=== PATIENT | male | born 1940 | race Caucasian/White ===

== ENCOUNTER 2016-08-30 19:11 | Inpatient (IN) | payer MEDICARE, OTHER ==
[2016-08-30] MEDS ORDERED: IPRATROPIUM-ALBUTEROL 3 ML NEB INHALATION STA (19:44)
[2016-08-30 19:55] LABS: Anisocytosis Slight; Basophils # (A) 0.1 k/uL (0-0.2); Basophils % (A) 1 %; CH 31.6; Eosinophils # (A) 0.1 k/uL (0-0.7); Eosinophils % (A) 1 %; HCT 42.9 % (39.0-53.0); HDW 2.85; Luc # (Auto) 0.26; Luc % (Auto) 3; Lymphocytes # (A) 1.6 k/uL (1.0-4.8); Lymphocytes % (A) 19 %; MCH 31.6 pg (25.0-35.0); MCHC 32.7 g/dL (31.0-37.0); MCV 96.6 fL (80.0-100.0); Macrocytosis Slight; Mean Platelet Volume 8.1; Monocytes # (A) 0.6 k/uL (0-1.0); Monocytes % (A) 7 %; Neutrophils % (A) 70 %; RBC 4.44 m/uL (4.30-5.90); RDW 16.6 % (11.5-15.5); WBC 8.6 k/uL (3.8-10.6); WBC (Perox) 8.25
[2016-08-30 20:05] LABS: ALT 23 U/L (21-72); AST 23 U/L (17-59); Alkaline Phosphatase 105 U/L (38-126); Anion Gap 11 mmol/L; Blood Urea Nitrogen 19 mg/dL (9-20); Calcium 9.3 mg/dL (8.4-10.2); Carbon Dioxide 23 mmol/L (22-30); Chloride 101 mmol/L (98-107); Glucose 108 mg/dL (74-99); INR 1.2 (<1.1); Non-African American GFR(MDRD) >60 (>60 ml/min/1.73 sqM); Partial Thromboplastin Time 27.3 sec (22.0-30.0); Potassium 3.8 mmol/L (3.5-5.1); Prothrombin Time 11.6 sec (9.0-12.0); Sodium 135 mmol/L (137-145); Total Bilirubin 1.4 mg/dL (0.2-1.3); Total Protein 6.7 g/dL (6.3-8.2)
--- NOTE | 2016-08-30 20:07 | ED ---
General Adult HPI - General Chief complaint: Chest Pain Stated complaint: Chest Pain Time Seen by Provider: 08/30/16 19:38 Source: patient Mode of arrival: wheelchair Limitations: no limitations - History of Present Illness Initial comments: 75-year-old male history of coronary disease with 2 bypasses COPD peripheral vascular disease with previous AK amputation and bifemoral bypass. Presents with a cough for last 6 weeks concerned he has pneumonia some discomfort in his chest when he coughs is not bending his blood pressure medicines found it hard to get the doctor has no dizziness no blurry vision no double vision no nausea no vomiting no diarrhea - Related Data Home Medications Medication Instructions Recorded Confirmed Apixaban [Eliquis] 2.5 mg PO BID 08/30/16 08/30/16 Furosemide [Lasix] 20 mg PO DAILY 08/30/16 08/30/16 Previous Rx's Medication Instructions Recorded Aspirin 81 mg PO DAILY chew 10/18/14 hydrALAZINE HCL [Apresoline] 50 mg PO TID #90 tab 10/18/14 Thiamine [Vitamin B-1] 100 mg PO BID@1200,1700 tab 05/28/15 Allergies Allergy/AdvReac Type Severity Reaction Status Date / Time No Known Allergies Allergy Verified 08/30/16 19:37 Review of Systems ROS Statement: Those systems with pertinent positive or pertinent negative responses have been documented in the HPI. ROS Other: All systems not noted in ROS Statement are negative. Constitutional: Denies: fever, chills Eyes: Denies: eye pain ENT: Denies: throat pain Respiratory: Reports: cough, dyspnea Cardiovascular: Reports: chest pain Gastrointestinal: Denies: abdominal pain, nausea, vomiting, diarrhea Neurological: Denies: headache Hematological/Lymphatic: Denies: easy bleeding, easy bruising Past Medical History Past Medical History: Atrial Fibrillation, Asthma, Coronary Artery Disease (CAD) , Heart Failure, COPD, Deep Vein Thrombosis (DVT), GERD/Reflux, Hyperlipidemia, Hypertension, Myocardial Infarction ([place]), Pneumonia, Pulmonary Embolus ([place]), Vascular Disorder Additional Past Medical History / Comment(s): Other HX: ischemic cardiomegalywith L atrial enlargement, CHF systolic dysfunction, LLL pneumonia 04/26/13, NSTEMI, Vtach, Afib, PVD, PAD, hiatal hernia, acute and chronic anemia ,chronicbackpain,bilateral feet and leg edema, Rleg fx in past, internal hemorrhoids and diverticulosis with polyps with removal. Pacemaker put in on at [facility] Last Myocardial Infarction Date:: unkn History of Any Multi-Drug Resistant Organisms: MRSA Date of last positivie culture/infection: 02/03/2015 MDRO Source:: Left Foot Past Surgical History: Coronary Bypass/CABG, Heart Catheterization, Hernia Repair Additional Past Surgical History / Comment(s): CABG 1974, CABG 1999, AICD 2004, R femoropopliteal graft complicated by post op infection 2007, colonoscopy with polypectomy transverse colon, umbilical hernia repair. PICC LINE 02/07/15, NOW OUT Past Anesthesia/Blood Transfusion Reactions: No Reported Reaction Additional Past Anesthesia/Blood Transfusion Reaction / Comment(s): Pt has recieved blood without reaction. Past Psychological History: Depression Additional Psychological History / Comment(s): Pt currently lives alone. He uses either a standard cane or quadcane to ambulate. He has no home care agency coming into the home. He states he is independent with his ADL's normally.Hestateshehas transportation issues and that is why he cannot get to appointments. He is not on home O2. Pt did share that he was admitted to psych unit about 3 yrs ago and tx fordepression.Hedeniesdepression to be a big problem at this time and denies thoughts of suicide or idealation or plan. Smoking Status: Current every day smoker Past Alcohol Use History: Occasional Additional Past Alcohol Use History / Comment(s): Pt states he started smoking at age 11 yrs. He recently reduced his smoking to 5 cigs a day but had smoked 1 -2 packs a day before that. He states he used to drink 4-5 beers daily butrecentlyreducedthat to 1 beer a day. Past Drug Use History: None Reported - Past Family History Father Family Medical History: Myocardial Infarction ([place]) Additional Family Medical History / Comment(s): Father at age 78 of [place]. Mother Family Medical History: Cancer Additional Family Medical History / Comment(s): Mother at age 51 of some form of cancer. General Exam Limitations: no limitations General appearance: alert, in no apparent distress Head exam: Present: atraumatic Eye exam: Present: PERRL, EOMI ENT exam: Present: normal oropharynx, mucous membranes moist Neck exam: Present: normal inspection Respiratory exam: Present: wheezes, rhonchi Cardiovascular Exam: Present: regular rate, normal heart sounds GI/Abdominal exam: Present: soft. Absent: distended, tenderness, guarding Extremities exam: Present: other (AK amputation on the left) Neurological exam: Present: alert, CN II-XII intact Psychiatric exam: Present: normal affect, normal mood Skin exam: Present: warm, dry Course Vital Signs 08/30/16 08/30/16 08/30/16 19:23 20:25 21:20 Temperature 96.9 F L Pulse Rate 89 65 60 Respiratory 18 18 20 Rate Blood Pressure 173/106 160/94 159/93 O2 Sat by Pulse 89 L 97 99 Oximetry Medical Decision Making - Lab Data Result diagrams: 08/30/16 19:30 08/30/16 19:30 Lab Results 08/30/16 08/30/16 08/30/16 Range/Units 19:30 19:30 19:30 WBC 8.6 (3.8-10.6) k/uL RBC 4.44 (4.30-5.90) m/uL Hgb 14.0 (13.0-17.5) gm/dL Hct 42.9 (39.0-53.0) % MCV 96.6 (80.0-100.0) fL MCH 31.6 (25.0-35.0) pg MCHC 32.7 (31.0-37.0) g/dL RDW 16.6 H (11.5-15.5) % Plt Count 255 (150-450) k/uL Neutrophils % 70 % Lymphocytes % 19 % Monocytes % 7 % Eosinophils % 1 % Basophils % 1 % Neutrophils # 6.0 (1.3-7.7) k/uL Lymphocytes # 1.6 (1.0-4.8) k/uL Monocytes # 0.6 (0-1.0) k/uL Eosinophils # 0.1 (0-0.7) k/uL Basophils # 0.1 (0-0.2) k/uL Anisocytosis Slight Macrocytosis Slight PT (9.0-12.0) sec INR (<1.1) APTT (22.0-30.0) sec Sodium 135 L (137-145) mmol/L Potassium 3.8 (3.5-5.1) mmol/L Chloride 101 (98-107) mmol/L Carbon Dioxide 23 (22-30) mmol/L Anion Gap 11 mmol/L BUN 19 (9-20) mg/dL Creatinine 0.77 (0.66-1.25) mg/dL Est GFR (MDRD) Af Amer >60 (>60 ml/min/1.73 sqM) Est GFR (MDRD) Non-Af >60 (>60 ml/min/1.73 sqM) Glucose 108 H (74-99) mg/dL Calcium 9.3 (8.4-10.2) mg/dL Total Bilirubin 1.4 H (0.2-1.3) mg/dL AST 23 (17-59) U/L ALT 23 (21-72) U/L Alkaline Phosphatase 105 (38-126) U/L Total Creatine Kinase 50 L (55-170) U/L CK-MB (CK-2) 2.0 (0.0-2.4) ng/mL CK-MB (CK-2) Rel Index 4.0 Troponin I 0.042 H* (0.000-0.034) ng/mL NT-Pro-B Natriuret Pep pg/mL Total Protein 6.7 (6.3-8.2) g/dL Albumin 3.6 (3.5-5.0) g/dL 08/30/16 08/30/16 Range/Units 19:30 19:30 WBC (3.8-10.6) k/uL RBC (4.30-5.90) m/uL Hgb (13.0-17.5) gm/dL Hct (39.0-53.0) % MCV (80.0-100.0) fL MCH (25.0-35.0) pg MCHC (31.0-37.0) g/dL RDW (11.5-15.5) % Plt Count (150-450) k/uL Neutrophils % % Lymphocytes % % Monocytes % % Eosinophils % % Basophils % % Neutrophils # (1.3-7.7) k/uL Lymphocytes # (1.0-4.8) k/uL Monocytes # (0-1.0) k/uL Eosinophils # (0-0.7) k/uL Basophils # (0-0.2) k/uL Anisocytosis Macrocytosis PT 11.6 (9.0-12.0) sec INR 1.2 (<1.1) APTT 27.3 (22.0-30.0) sec Sodium (137-145) mmol/L Potassium (3.5-5.1) mmol/L Chloride (98-107) mmol/L Carbon Dioxide (22-30) mmol/L Anion Gap mmol/L BUN (9-20) mg/dL Creatinine (0.66-1.25) mg/dL Est GFR (MDRD) Af Amer (>60 ml/min/1.73 sqM) Est GFR (MDRD) Non-Af (>60 ml/min/1.73 sqM) Glucose (74-99) mg/dL Calcium (8.4-10.2) mg/dL Total Bilirubin (0.2-1.3) mg/dL AST (17-59) U/L ALT (21-72) U/L Alkaline Phosphatase (38-126) U/L Total Creatine Kinase (55-170) U/L CK-MB (CK-2) (0.0-2.4) ng/mL CK-MB (CK-2) Rel Index Troponin I (0.000-0.034) ng/mL NT-Pro-B Natriuret Pep 02418 pg/mL Total Protein (6.3-8.2) g/dL Albumin (3.5-5.0) g/dL - EKG Data -: EKG Interpreted by Me 08/30/16 20:26 EKG 08/30/2016 1924 ventricular rate 64 bpm AK interval 292 ms, QRS duration 204 ms QT interval 520 ms atrial sensed ventricular paced rhythm with prolonged AV conduction - Radiology Data Radiology results: report reviewed Cardiomegaly congestive heart failure Disposition Clinical Impression: CHF (congestive heart failure), Peripheral vascular disease of lower extremity , COPD (chronic obstructive pulmonary disease) Disposition: ADMITTED IP TO THIS [facility] Condition: Fair Time of Disposition: 22:06
--- NOTE | 2016-08-30 20:31 | XR ---
EXAMINATION TYPE: XR chest 2V DATE OF EXAM: 08/30/2016 8:25 PM COMPARISON: 05/22/2015 HISTORY: 75-year-old male difficulty breathing TECHNIQUE: Frontal and lateral views FINDINGS: Heart is mildly enlarged, increased from prior. Left anterior chest wall AICD generator with right ve ntricular lead. Median sternotomy wires are present with post-CABG changes. New interstitial lung disease with small bilateral pleural effusions with adjacent opacity. More foca l left midlung opacity should be reassessed after treatment. IMPRESSION: 1. Findings suggest COPD with superimposed CHF and interstitial pulmonary edema. 2. Small pleural effusions with adjacent atelectasis and/or consolidation. 3. A more focal left midlung opacity should be reassessed after treatment.
[2016-08-30 20:51] LABS: Troponin I 0.042 ng/mL (0.000-0.034)
[2016-08-30] MEDS ORDERED: FUROSEMIDE 10 MG/ML 4 ML VIAL IV STA (21:04)
[2016-08-30] MEDS ORDERED: ALPRAZolam 0.25 MG TAB PO PRN (22:07)
[2016-08-30] MEDS ORDERED: NALOXONE 0.4 MG/ML 1 ML VIAL IV PRN (22:07)
[2016-08-30] MEDS: SODIUM CHLORIDE 0.9% 1,000 ML IV SCH (23:28)
[2016-08-31] MEDS: NITROGLYCERIN OINT 1 INCH/GM PACKET TOPICAL SCH ×2 (00:18→08:03)
[2016-08-31 02:07] LABS: Creatine Kinase MB 1.4 ng/mL (0.0-2.4)
[2016-08-31 02:27] LABS: Troponin I 0.043 ng/mL (0.000-0.034)
[2016-08-31 06:56] LABS: Anion Gap 12 mmol/L; Blood Urea Nitrogen 16 mg/dL (9-20); Calcium 8.9 mg/dL (8.4-10.2); Carbon Dioxide 25 mmol/L (22-30); Chloride 102 mmol/L (98-107); Glucose 93 mg/dL (74-99); Non-African American GFR(MDRD) >60 (>60 ml/min/1.73 sqM); Potassium 3.4 mmol/L (3.5-5.1); Sodium 139 mmol/L (137-145)
[2016-08-31 07:08] LABS: Creatine Kinase MB 1.4 ng/mL (0.0-2.4)
[2016-08-31 07:16] LABS: Troponin I 0.044 ng/mL (0.000-0.034)
[2016-08-31 07:28] LABS: Anisocytosis Slight; Basophils # (A) 0.1 k/uL (0-0.2); Basophils % (A) 1 %; CH 31.8; CHCM 32.6; Eosinophils # (A) 0.1 k/uL (0-0.7); Eosinophils % (A) 1 %; HCT 44.9 % (39.0-53.0); HDW 2.81; HGB 14.3 gm/dL (13.0-17.5); Luc # (Auto) 0.19; Luc % (Auto) 3; Lymphocytes # (A) 1.4 k/uL (1.0-4.8); Lymphocytes % (A) 18 %; MCH 31.3 pg (25.0-35.0); MCHC 31.8 g/dL (31.0-37.0); MCV 98.3 fL (80.0-100.0); Macrocytosis Slight; Monocytes # (A) 0.6 k/uL (0-1.0); Monocytes % (A) 8 %; Neutrophils # (A) 5.4 k/uL (1.3-7.7); Neutrophils % (A) 70 %; RBC 4.57 m/uL (4.30-5.90); RDW 16.6 % (11.5-15.5); WBC 7.7 k/uL (3.8-10.6); WBC (Perox) 7.01
[2016-08-31] MEDS: ASPIRIN 81 MG CHEW PO SCH (08:03)
[2016-08-31] MEDS: APIXABAN 2.5 MG TABLET PO SCH ×2 (08:03→21:29)
[2016-08-31] MEDS: FUROSEMIDE 10 MG/ML 4 ML VIAL IV SCH ×3 (08:04→21:30)
[2016-08-31] MEDS: FAMOTIDINE 20 MG TAB PO SCH ×2 (08:04→21:34)
[2016-08-31] MEDS: hydrALAZINE HCL 50 MG TAB PO SCH ×3 (08:04→21:29)
--- NOTE | 2016-08-31 10:08 | CONS ---
DATE OF CONSULTATION: Attending: Dr. Caldwell Mr. Lewis is a 75-year-old male with known history of coronary artery disease, status post coronary artery bypass grafting, history of ischemic cardiomyopathy, ICD implant, atrial fibrillation, severe peripheral vascular disease, status post left AKA and noncompliant, has not been followed by cardiology for over 2 years and according to him he has not seen Dr. Caldwell in a while, who presented with symptoms of progressive dyspnea, cough and chest pain, worse with deep breathing. Patient has a history of chronic tobacco use and unfortunately history of chronic alcohol intake as well although according to him that is better. He is quite limited in his physical activity. He is in a wheelchair. He denies any peripheral edema but he sleeps in a recliner. The discomfort in the chest appears to be respirophasic but he has significant dyspnea on exertion, although he is limited in his activity. He has a cough. He thinks he had a fever, but he is not quite sure. He has no palpitation or syncope. His coronary risk factors are remarkable for a history of hypertension. He is a smoker, nondiabetic. His medications at home include: Eliquis 2.5 mg twice a day, aspirin once a day, Lasix 20 mg daily, thiamine and hydralazine 50 mg 3 times a day. REVIEW OF SYSTEMS: RESPIRATORY SYSTEM: History of chronic tobacco use, dyspnea on exertion as well as the cough. GI: No recent GI bleeding. No peptic ulcer disease. SYSTEM: No dysuria or hematuria. NERVOUS SYSTEM: No history of seizure. Past surgical history is remarkable for coronary artery bypass grafting and the left above-knee amputation. PHYSICAL EXAMINATION: A 75-year-old male, alert, oriented, in no apparent distress. Blood pressure 160/90 with a heart rate in the 60s. HEAD: Normocephalic. EYES: Sclerae anicteric. NECK: Good upstroke. No jugular venous distention. LUNGS: With decreased air exchange bilaterally. No wheezes. HEART: S1, S2 with systolic murmur heard at the base. No diastolic murmur. No rub. ABDOMEN: Soft, nontender, positive bowel sounds. No organomegaly. EXTREMITIES: Status post left above-knee amputation. No edema on the right side. Decreased distal pulses. Lab data revealed troponin 0.42, 0.043, 0.044. NT-proBNP 15,500, BUN and creatinine 16 and 0.74. Potassium 3.4. Hemoglobin 14.3, platelets count 238. EKG revealed to underlying atrial fibrillation with 100% ventricle pacing. Chest x-ray revealed chronic obstructive pulmonary disease with pleural effusion and left midlung opacity with congestion. IMPRESSION: 1. Symptoms of progressive dyspnea in a patient with known history of severe ischemic cardiomyopathy and an element of congestive heart failure. Possible exacerbation of chronic obstructive pulmonary disease with upper respiratory infection. 2. History of coronary artery bypass grafting. 3. ICD implant. 4. Severe peripheral vascular disease. 5. Chronic tobacco use. 6. Prior history of chronic alcohol intake. 7. Noncompliance. RECOMMENDATION: I will add to his regimen a beta brooke. I will also add nitrate and Aldactone. We will add nitrate and obtain echocardiogram with Doppler. Depending on his progress, further recommendation will be made. Unfortunately prognosis is guarded. Patient has been noncompliant with treatment in the past. He is not a candidate for any aggressive cardiac work-up. Thank you for this consult. We will follow with you.
[2016-08-31] MEDS: ISOSORBIDE MONONITRATE ER 30 MG TAB.ER.24H PO SCH (10:41)
[2016-08-31] MEDS: CARVEDILOL 3.125 MG TAB PO SCH ×2 (10:41→17:30)
[2016-08-31] MEDS: SPIRONOLACTONE 25 MG TAB PO SCH (10:41)
[2016-08-31] MEDS: ATORVASTATIN 40 MG TAB PO SCH (10:41)
[2016-08-31] MEDS: THIAMINE 100 MG TAB PO SCH ×2 (10:42→17:30)
[2016-08-31 12:13] LABS: Creatine Kinase MB 1.3 ng/mL (0.0-2.4); Troponin I 0.039 ng/mL (0.000-0.034)
[2016-08-31] MEDS: LEVOFLOXACIN 500MG-D5W PMX 500 MG in DEXTROSE/WATER 1 100ML.BAG IVPB SCH (12:17)
[2016-08-31] MEDS: guaiFENesin 600 MG TABLET.ER PO SCH ×2 (12:18→21:29)
[2016-08-31] MEDS: methylPREDNISolone SOD SUCCI 125 MG/2 ML VIAL IV SCH ×3 (12:18→23:18)
--- NOTE | 2016-08-31 12:26 | CT ---
EXAMINATION TYPE: HRCT chest DATE OF EXAM: 08/31/2016 11:53 AM COMPARISON: 10/13/2014 HISTORY: 75-year-old male CHF, chest pain TECHNIQUE: Contiguous axial scanning of the chest without IV contrast. HRCT technique was utilized wi th 1 mm slice thickness and 1 cm gap. Only supine imaging was performed. CT DLP: 331.2 mGycm Automated exposure control for dose reduction was used. FINDINGS: Left anterior chest wall AICD generator with a right ventricular lead. Median sternotomy wires are pr esent with post-CABG changes in the mediastinum. Heart is borderline enlarged though it prominent left atrial dilatation. No pericardial effusion. There is mild ectasia of the ascending aorta 3.7 cm with conventional arch vessel branching anatomy. Mild aneurysm of the upper descending thoracic aorta 3.2 cm and ectasia of the lower descending thora cic aorta at 2.9 cm. Moderately atherosclerotic calcifications are present. There is also enlargement of the main right and left pulmonary arteries. 3.2 and 2.8 cm, respectively , suggesting underlying pulmonary arterial hypertension. Limited assessment on HRCT suggest mediastinal lymphadenopathy measuring up to 1.5 cm in the pretrach eal region and 1.2 cm and the left tracheobronchial angle, there may be an additional 1.9 cm subcarin al lymph node. These may have been present on the prior exam. There is diffuse bronchial wall thickening with moderate centrilobular emphysema. Small right pleural effusion with adjacent atelectasis. There is some patchy opacity at both the medi al and lateral right base that could represent atelectasis or infiltrate. Dependent atelectasis at th e left lung base. Possible 9 mm left basilar pulmonary nodule. There is also a 2.2 cm subpleural pulmonary nodule along the left major fissure at the midlung level corresponding to the questioned radiographic finding. Visualized upper abdomen shows renal calcifications measuring up to 4 mm that could be vascular, or r eflect nonobstructive renal calculi. Bones: Degenerative changes at the left shoulder. No osseous destructive process is seen by HRCT tech nique. IMPRESSION: 1. CARDIOMEGALY WITH PROMINENT LEFT ATRIAL DILATATION AND PULMONARY ARTERIAL HYPERTENSION. 2. COPD WITH MODERATE EMPHYSEMA. 3. SMALL RIGHT PLEURAL EFFUSION. CORRELATE FOR MILD CHF. NO FRANCISCO PULMONARY EDEMA. 4. PATCHY ATELECTASIS OR INFILTRATE AT THE RIGHT BASE AND ADDITIONAL ATELECTASIS AT THE LEFT BASE. 5. 2.2 CM SUBPLEURAL PULMONARY NODULE AT THE LEFT MID LUNG CORRESPONDS TO THE RADIOGRAPHIC FINDING AN D IS NEW FROM 10/13/2014. AFTER MANAGEMENT OF PATIENT'S ACUTE PRESENTATION, EITHER 3, 9, 24 MONTH FOLL OW-UP EXAMS OR PET/CT CAN BE PERFORMED. 6. POSSIBLE 9 MM LEFT BASILAR PULMONARY NODULE. ASSESSMENT FOR NODULES IS LIMITED ON HRCT. NOTE THAT HRCT IS GENERALLY RESERVED FOR ASSESSING PATTERNS OF INTERSTITIAL LUNG DISEASE. 7. MEDIASTINAL LYMPHADENOPATHY MEASURING UP TO 1.9 CM SEEMS TO HAVE BEEN PRESENT ON 2014. THIS SUGGES TS A BENIGN ETIOLOGY BUT CAN BE REASSESSED ON THE PATIENT'S FOLLOW-UP OR PET/CT.
--- NOTE | 2016-08-31 14:25 | P.HPIM ---
History of Present Illness H&P Date: 08/31/16 Chief Complaint: Shortness of breath wheezing cough Is a 75-year-old gentleman patient of Dr. Caldwell and Dr. Benjamin, he has underlying history of CHF, CAD, COPD, CK D, PAD, chronic atrial fibrillation, asthma, noncompliance, previous PE and DVT, current smoker history of pacemaker , [id number] amputation left side, admitted to the hospital secondary to shortness of breath for approximately 6 weeks presenting with with orthopnea wheezing shortness of breath difficulty of breathing and left-sided pleurisy. Patient ran out of this medication for the past 2-3 months has had difficulty in obtaining a visit with Dr. Caldwell as he needs 3 by his rides to get to the clinic, he navigates through his manual wheelchair. He currently smokes 1-1/2 pack per day has a nebulizer machine no O2 requirements and was seen in the emergency room secondary to CHF exacerbation as well as COPD exacerbation. He refused to see a pulmonary physician. In the emergency room, EKG showed ventricular rate of 64, atrial sensed ventricular paced rhythm with prolonged AV conduction chest x-ray shows cardiomegaly congestive heart failure is emptying with superimposed CHF and interstitial pulmonary edema and small pleural effusion with atelectasis and or consultation focal left mid lung opacification Past Medical History Past Medical History: Atrial Fibrillation, Asthma, Coronary Artery Disease (CAD) , Heart Failure, COPD, Deep Vein Thrombosis (DVT), GERD/Reflux, Hyperlipidemia, Hypertension, Myocardial Infarction ([place]), Pneumonia, Vascular Disorder Additional Past Medical History / Comment(s): Other HX: ischemic cardiomegaly with L atrial enlargement, CHF systolic dysfunction, NSTEMI, PVD, PAD, hiatal hernia, Rleg fx in past, internal hemorrhoids and diverticulosis with polyps with removal. Pacemaker put in on 04/05/2015 at [place] Last Myocardial Infarction Date:: unkn History of Any Multi-Drug Resistant Organisms: MRSA Date of last positivie culture/infection: 02/03/2015 MDRO Source:: Left Foot Past Surgical History: Coronary Bypass/CABG, Heart Catheterization, Hernia Repair Additional Past Surgical History / Comment(s): CABG 1974, CABG 1999, AICD 2004, R femoropopliteal graft complicated by post op infection 2007, colonoscopy with polypectomy transverse colon, umbilical hernia repair. PICC LINE 02/07/15, NOW OUT , left AKA Past Anesthesia/Blood Transfusion Reactions: No Reported Reaction Additional Past Anesthesia/Blood Transfusion Reaction / Comment(s): Pt has recieved blood without reaction. Past Psychological History: Depression Additional Psychological History / Comment(s): Pt currently lives alone. He states he is independent with his ADL's normally.He states he has transportation issues and that is why he cannot get to appointments. Smoking Status: Current every day smoker Past Alcohol Use History: Occasional Additional Past Alcohol Use History / Comment(s): Pt states he started smoking at age 11 yrs. He recently reduced his smoking to 10 cigs a day but had smoked 1-2 packs a day before that. Past Drug Use History: None Reported - Past Family History Father Family Medical History: Myocardial Infarction ([place]) Additional Family Medical History / Comment(s): Father at age 48 of [place]. Mother Family Medical History: Cancer Additional Family Medical History / Comment(s): Mother at age 51 of some form of cancer. Medications and Allergies Home Medications Medication Instructions Recorded Confirmed Type Apixaban [Eliquis] 2.5 mg PO BID 08/30/16 08/30/16 History Furosemide [Lasix] 20 mg PO DAILY 08/30/16 08/30/16 History Allergies Allergy/AdvReac Type Severity Reaction Status Date / Time No Known Allergies Allergy Verified 08/30/16 19:37 Physical Exam Vitals: Vital Signs Temp Pulse Resp BP Pulse Ox 08/31/16 08:00 98.0 F 61 18 154/80 98 08/31/16 04:00 96.9 F L 62 18 145/91 97 08/30/16 23:33 97.1 F L 65 18 145/90 94 L 08/30/16 22:50 97.1 F L 65 18 145/90 94 L Intake and Output 08/30/16 08/31/16 08/31/16 22:59 06:59 14:59 Intake Total 140 Output Total 630 1675 Balance -335 1679 Intake: Intake, IV Titration 140 Amount Sodium Chloride 0.9% 1, 140 000 ml @ 20 mls/hr IV . Q24H MAI Rx#:[id number] Output: Urine 473 1675 Other: # Voids 3 Weight 57.5 kg 57.5 kg Patient Weight 09/01/16 06:59 Weight 57.5 kg - Constitutional General appearance: cooperative, no acute distress - EENT Eyes: anicteric sclerae, EOMI, PERRLA, dentition normal ENT: hard of hearing, NA/AT, normal oropharynx - Neck Neck: no lymphadenopathy, normal ROM, no other, no rigidity, no stridor, no thyromegaly - Respiratory Respiratory: bilateral: CTA, negative: diminished, dullness, rales, rhonchi, wheezing, prolonged expiration - Cardiovascular Rhythm: regular Heart sounds: normal: S1, S2 Abnormal Heart Sounds: systolic murmur, no diastolic murmur, no rub, no S3 Gallop, no S4 Gallop, no click, no other - Gastrointestinal General gastrointestinal: decreased bowel sounds, normal bowel sounds, soft - Integumentary Integumentary: normal, normal turgor - Neurologic Neurologic: CNII-XII intact - Musculoskeletal Musculoskeletal: gait normal, strength equal bilaterally - Psychiatric Psychiatric: A&O x's 3, appropriate affect, intact judgment & insight Results CBC & Chem 7: 09/01/16 06:10 09/01/16 06:12 Labs: Abnormal Lab Results - Last 24 Hours (Table) 08/31/16 08/31/16 08/31/16 Range/Units 01:16 06:30 06:30 RDW 16.6 H (11.5-15.5) % D-Dimer (<0.60) mg/L FEU Potassium 3.4 L (3.5-5.1) mmol/L Total Creatine Kinase 39 L (55-170) U/L Troponin I 0.043 H* (0.000-0.034) ng/mL 08/31/16 08/31/16 08/31/16 Range/Units 06:30 11:23 11:23 RDW (11.5-15.5) % D-Dimer 0.67 H (<0.60) mg/L FEU Potassium (3.5-5.1) mmol/L Total Creatine Kinase 35 L 32 L (55-170) U/L Troponin I 0.044 H* 0.039 H* (0.000-0.034) ng/mL Thrombosis Risk Factor Assmnt - Choose All That Apply Each Factor Represents 1 point: Abnormal pulmonary function (COPD) Each Risk Factor Represents 3 Points: Age 75 years or older Thrombosis Risk Factor Assessment Total Risk Factor Score: 4 Thrombosis Risk Factor Assessment Level: Moderate Risk Assessment and Plan Plan: 1. Acute CHF exacerbation suspected mixed in etiology on top of chronic mixed CHF noncompliance for several weeks on his treatment, patient's receiving IV Lasix 40 mg every 8 hours. Consults were made with cardiology, echocardiogram was requested, computed tomography scan high resolution was requested to evaluate the left lung nodule that was noted. Spironolactone was started 2. COPD exacerbation with underlying pneumonitis/infiltrate noted on chest x- ray, patient was started on Solu-Medrol IV 60 mg every 6 hours along with nebulized albuterol Atrovent, IV Levaquin 2. History of CAD status post CABG 2 with ischemic cardiomyopathy we will continue the patient on hydralazine 50 mg orally 3 times every day, aspirin 81 mg orally once every day. Imdur daily was started continue on beta blockers he is on Coreg 2.25 mg twice a day 3. Hypertension and hypertensive cardiovascular disease we will continue the patient on hydralazine 50 mg orally 3 times every day. 4. Severe PAD status post bilateral fem-pop bypasses and currently is having a big issues on his left lower extremity with gangrenous changes with impending amputation, was seen and evaluated by Dr. Cortes at [facility] and he would be admitted to our hospital after discussing with Dr. Tracey for possible left above-knee inpatient tomorrow morning. 5. Bilateral pulmonary emboli continue the patient is off Xarelto. 6. Chronic tobacco use and dependence with chronic obstructive pulmonary disease continue the patient on DuoNeb nebulization 3 times a day as well as Pulmicort 0.5 mg nebulization twice every day. 7. Benign prostatic hypertrophy continue Flomax 0.4 mg orally once every day. 8. Phantom leg pain left side patient can have tramadol on a when necessary basis 9. DVT prophylaxis currently on Lovenox 40 mg subcutaneous every 24 hours. 10. GI prophylaxis start the patient on omeprazole 20 mg orally once every day. 11. Long-term anticoagulation with eliquis 12. No code.
[2016-08-31] MEDS ORDERED: POTASSIUM CHLORIDE ER 20 MEQ TAB.ER PO STA (14:26)
[2016-08-31 16:53] LABS: Glucose,Whole Blood 109 mg/dL (75-99)
[2016-08-31 21:10] LABS: Glucose,Whole Blood 110 mg/dL (75-99)
[2016-08-31] MEDS: INSULIN LISPRO (humaLOG) 300 UNIT/3 ML VIAL SQ SCH (21:27)
[2016-08-31] MEDS: POTASSIUM CHLORIDE ER 20 MEQ TAB.ER PO SCH (21:29)
[2016-08-31] MEDS: SODIUM CHLORIDE 0.9% 1,000 ML IV SCH (21:34)
[2016-09-01 06:46] LABS: Anisocytosis Slight; Basophils % (A) 0 %; CH 31.8; CHCM 32.9; Eosinophils % (A) 0 %; HCT 47.1 % (39.0-53.0); HDW 2.75; Luc # (Auto) 0.05; Luc % (Auto) 1; Lymphocytes # (A) 0.4 k/uL (1.0-4.8); Lymphocytes % (A) 6 %; MCHC 31.9 g/dL (31.0-37.0); Macrocytosis Slight; Monocytes # (A) 0.2 k/uL (0-1.0); Monocytes % (A) 3 %; Neutrophils % (A) 90 %; RBC 4.85 m/uL (4.30-5.90); RDW 16.5 % (11.5-15.5); WBC 6.7 k/uL (3.8-10.6)
[2016-09-01 06:52] LABS: Glucose,Whole Blood 210 mg/dL (75-99)
[2016-09-01] MEDS: methylPREDNISolone SOD SUCCI 125 MG/2 ML VIAL IV SCH ×2 (06:55→11:51)
[2016-09-01] MEDS: CARVEDILOL 3.125 MG TAB PO SCH ×2 (06:56→16:42)
[2016-09-01 06:59] LABS: Anion Gap 11 mmol/L; Blood Urea Nitrogen 26 mg/dL (9-20); Calcium 9.5 mg/dL (8.4-10.2); Carbon Dioxide 23 mmol/L (22-30); Chloride 101 mmol/L (98-107); Glucose 193 mg/dL (74-99); Non-African American GFR(MDRD) >60 (>60 ml/min/1.73 sqM); Potassium 4.1 mmol/L (3.5-5.1); Sodium 135 mmol/L (137-145)
[2016-09-01] MEDS: INSULIN LISPRO (humaLOG) 300 UNIT/3 ML VIAL SQ SCH ×4 (06:59→22:01)
[2016-09-01] MEDS: SPIRONOLACTONE 25 MG TAB PO SCH (09:03)
[2016-09-01] MEDS: FAMOTIDINE 20 MG TAB PO SCH ×2 (09:03→20:41)
[2016-09-01] MEDS: ATORVASTATIN 40 MG TAB PO SCH (09:03)
[2016-09-01] MEDS: POTASSIUM CHLORIDE ER 20 MEQ TAB.ER PO SCH ×2 (09:03→20:42)
[2016-09-01] MEDS: guaiFENesin 600 MG TABLET.ER PO SCH ×2 (09:03→20:41)
[2016-09-01] MEDS: APIXABAN 2.5 MG TABLET PO SCH ×2 (09:03→20:40)
[2016-09-01] MEDS: ASPIRIN 81 MG CHEW PO SCH (09:03)
[2016-09-01] MEDS: FUROSEMIDE 10 MG/ML 4 ML VIAL IV SCH (09:04)
[2016-09-01 10:16] LABS: Hemoglobin A1C 4.8 % (4.2-6.1)
[2016-09-01] MEDS: ISOSORBIDE MONONITRATE ER 30 MG TAB.ER.24H PO SCH (11:46)
[2016-09-01] MEDS: hydrALAZINE HCL 50 MG TAB PO SCH ×3 (11:47→20:42)
[2016-09-01] MEDS: LEVOFLOXACIN 500MG-D5W PMX 500 MG in DEXTROSE/WATER 1 100ML.BAG IVPB SCH (11:50)
[2016-09-01] MEDS: THIAMINE 100 MG TAB PO SCH ×2 (11:51→16:43)
[2016-09-01 11:57] LABS: Glucose,Whole Blood 102 mg/dL (75-99)
[2016-09-01] MEDS ORDERED: IPRATROPIUM-ALBUTEROL 3 ML NEB INHALATION PRN (13:08)
[2016-09-01 14:45] VITALS: BMI 18.5
--- NOTE | 2016-09-01 14:55 | P.PN ---
Subjective Principal diagnosis: Shortness of breath This is a 75-year-old gentleman with known history of coronary artery disease and prior bypass surgery, ischemic cardio myopathy with prior AICD implant, paroxysmal atrial fibrillation, severe peripheral vascular disease status post left AKA, noncompliance, who presented to the hospital with symptoms of progressive dyspnea with associated cough. Patient has a history of chronic tobacco use as well as history of chronic EtOH abuse. Currently being treated for exacerbation of COPD along with systolic congestive heart failure. Overall the patient states he feels much better today, lying flat in bed at the time of my examination. Still has intermittent productive cough. Objective - Vital Signs Vital signs: Vital Signs Temp 97.1 F L 09/01/16 08:00 Pulse 69 09/01/16 11:45 Resp 16 09/01/16 11:45 BP 148/95 09/01/16 11:45 Pulse Ox 95 09/01/16 11:45 Intake & Output 08/31/16 09/01/16 09/01/16 18:59 06:59 18:59 Intake Total 236 180 Output Total 1925 1200 100 Balance -1689 -1200 80 Weight 57.5 kg 62 kg 62 kg Intake: Oral 236 180 Output: Urine 1924 1200 100 Other: Voiding Method Urinal # Voids 0 1 - Exam PHYSICAL EXAMINATION: HEENT: Head is atraumatic, normocephalic. Pupils equal, round. Neck is supple. There is no elevated jugular venous pressure. HEART EXAMINATION: Heart S1 and S2, systolic murmur heard. CHEST EXAMINATION: Lungs reveal bilateral decreased air exchange ABDOMEN: Soft, nontender. Bowel sounds are heard. No organomegaly noted. EXTREMITIES:[ 1+ pulse to the right lower extremity patient has a left below the knee amputation. NEUROLOGIC patient is awake, alert and oriented -3. . - Labs CBC & Chem 7: 09/01/16 06:10 09/01/16 06:12 Labs: Abnormal Lab Results - Last 24 Hours (Table) 08/31/16 08/31/16 09/01/16 Range/Units 16:52 21:04 06:10 RDW 16.5 H (11.5-15.5) % Lymphocytes # 0.4 L (1.0-4.8) k/uL Sodium (137-145) mmol/L BUN (9-20) mg/dL Glucose (74-99) mg/dL POC Glucose (mg/dL) 109 H 110 H (75-99) mg/dL 09/01/16 09/01/16 09/01/16 Range/Units 06:12 06:32 11:47 RDW (11.5-15.5) % Lymphocytes # (1.0-4.8) k/uL Sodium 135 L (137-145) mmol/L BUN 26 H (9-20) mg/dL Glucose 193 H (74-99) mg/dL POC Glucose (mg/dL) 210 H 102 H (75-99) mg/dL Assessment and Plan (1) Systolic CHF, acute on chronic Status: Acute (2) COPD (chronic obstructive pulmonary disease) Status: Acute (3) Ischemic cardiomyopathy Status: Acute (4) History of left below knee amputation Status: Acute (5) Peripheral vascular disease of lower extremity Status: Acute (6) AICD (automatic cardioverter/defibrillator) present Status: Acute (7) Hx of CABG Status: Acute (8) Noncompliance Status: Acute Plan: From cardiology's perspective, we'll discontinue the IV Lasix and start the patient on oral diuretics. Check lytes BUN and creatinine in the morning. DNP note has been reviewed, I agree with a documented findings and plan of care. Patient was seen and examined.
--- NOTE | 2016-09-01 15:28 | P.PN ---
Subjective Is a 75-year-old gentleman patient of Dr. Caldwell and Dr. Benjamin, he has underlying history of CHF, CAD, COPD, CK D, PAD, chronic atrial fibrillation, asthma, noncompliance, previous PE and DVT, current smoker history of pacemaker , [id number] amputation left side, admitted to the hospital secondary to shortness of breath for approximately 6 weeks presenting with with orthopnea wheezing shortness of breath difficulty of breathing and left-sided pleurisy. Patient ran out of this medication for the past 2-3 months has had difficulty in obtaining a visit with Dr. Caldwell as he needs 3 by his rides to get to the clinic, he navigates through his manual wheelchair. He currently smokes 1-1/2 pack per day has a nebulizer machine no O2 requirements and was seen in the emergency room secondary to CHF exacerbation as well as COPD exacerbation. He refused to see a pulmonary physician. In the emergency room, EKG showed ventricular rate of 64, atrial sensed ventricular paced rhythm with prolonged AV conduction chest x-ray shows cardiomegaly congestive heart failure is emptying with superimposed CHF and interstitial pulmonary edema and small pleural effusion with atelectasis and or consultation focal left mid lung opacification 09/01: CT of the chest reveals cardiomegaly with prominent left atrial dilatation and pulmonary artery hypertension, COPD with moderate emphysema, small right pleural effusion correlate for heart failure. Patchy atelectasis or infiltrate right base and atelectasis left base. 2.2 cm pulmonary nodule left mid lung which is new from October 2014. Possible 9 mm left basilar pulmonary nodule. Mediastinal lymphadenopathy measuring up to 1.9 cm seems to have been present in 2015. This suggests benign etiology. Patient has been seen by Dr. Benjamin and he has added beta brooke, nitrate and Aldactone. Echocardiogram is pending. No plan for aggressive workup.patient continues to have wheezing and DuoNeb treatments have been added. Solu-Medrol changed to 40 mg IV every 8 hours. Objective - Vital Signs Vital signs: Vital Signs Temp 97.1 F L 09/01/16 08:00 Pulse 69 09/01/16 11:45 Resp 16 09/01/16 11:45 BP 148/95 09/01/16 11:45 Pulse Ox 95 09/01/16 11:45 Intake & Output 08/31/16 09/01/16 09/01/16 18:59 06:59 18:59 Intake Total 236 180 Output Total 192 1200 100 Balance -1689 -1200 80 Weight 57.5 kg 62 kg Intake: Oral 236 180 Output: Urine 192 1200 100 Other: Voiding Method Urinal # Voids 0 1 - Labs CBC & Chem 7: 09/01/16 06:10 09/01/16 06:12 Labs: Abnormal Lab Results - Last 24 Hours (Table) 08/31/16 08/31/16 09/01/16 Range/Units 16:52 21:04 06:10 RDW 16.5 H (11.5-15.5) % Lymphocytes # 0.4 L (1.0-4.8) k/uL Sodium (137-145) mmol/L BUN (9-20) mg/dL Glucose (74-99) mg/dL POC Glucose (mg/dL) 109 H 110 H (75-99) mg/dL 09/01/16 09/01/16 09/01/16 Range/Units 06:12 06:32 11:47 RDW (11.5-15.5) % Lymphocytes # (1.0-4.8) k/uL Sodium 135 L (137-145) mmol/L BUN 26 H (9-20) mg/dL Glucose 193 H (74-99) mg/dL POC Glucose (mg/dL) 210 H 102 H (75-99) mg/dL Assessment and Plan Plan: 1. Acute on chronic systolic noncompliance for several weeks on his treatment, IV Lasix changed to oral by cardiology. Consults were made with cardiology, echocardiogram was requested, computed tomography scan high resolution was requested to evaluate the left lung nodule that was noted. Spironolactone was started 2. COPD exacerbation with underlying pneumonitis/infiltrate noted on chest x- ray, patient was started on Solu-Medrol IV 40 mg every 8 hours along with nebulized albuterol Atrovent, IV Levaquin 2. History of CAD status post CABG 2 with ischemic cardiomyopathy we will continue the patient on hydralazine 50 mg orally 3 times every day, aspirin 81 mg orally once every day. Imdur daily was started continue on beta blockers he is on Coreg 2.25 mg twice a day 3. Hypertension and hypertensive cardiovascular disease we will continue the patient on hydralazine 50 mg orally 3 times every day. 4. Severe PAD status post bilateral fem-pop bypasses and currently is having a big issues on his left lower extremity with gangrenous changes with impending amputation, was seen and evaluated by Dr. Cortes at [facility] and he would be admitted to our hospital after discussing with Dr. Tracey for possible left above-knee inpatient tomorrow morning. 5. Bilateral pulmonary emboli continue the patient is off Xarelto. 6. Chronic tobacco use and dependence with chronic obstructive pulmonary disease continue the patient on DuoNeb nebulization 3 times a day as well as Pulmicort 0.5 mg nebulization twice every day. 7. Benign prostatic hypertrophy continue Flomax 0.4 mg orally once every day. 8. Phantom leg pain left side patient can have tramadol on a when necessary basis 9. DVT prophylaxis currently on Lovenox 40 mg subcutaneous every 24 hours. 10. GI prophylaxis start the patient on omeprazole 20 mg orally once every day. 11. Long-term anticoagulation with eliquis 12. No code. Discharge plan: Impression and plan of care have been directed as dictated by the signing physician. Sirisha Zayas nurse practitioner acting as scribe for signing physician. Time with Patient: Greater than 30
[2016-09-01] MEDS: IPRATROPIUM-ALBUTEROL 3 ML NEB INHALATION SCH ×3 (15:51→19:19)
[2016-09-01] MEDS: FUROSEMIDE 40 MG TAB PO SCH (16:42)
[2016-09-01 17:08] LABS: Glucose,Whole Blood 149 mg/dL (75-99)
[2016-09-01 21:46] LABS: Glucose,Whole Blood 145 mg/dL (75-99)
[2016-09-01] MEDS: SODIUM CHLORIDE 0.9% 1,000 ML IV SCH (22:02)
[2016-09-02] MEDS: methylPREDNISolone SOD SUCCI 40 MG/ML 1 ML VIAL IV SCH ×2 (00:13→08:45)
[2016-09-02 06:31] LABS: Anion Gap 12 mmol/L; Blood Urea Nitrogen 39 mg/dL (9-20); Calcium 9.4 mg/dL (8.4-10.2); Carbon Dioxide 21 mmol/L (22-30); Chloride 101 mmol/L (98-107); Glucose 140 mg/dL (74-99); Non-African American GFR(MDRD) >60 (>60 ml/min/1.73 sqM); Potassium 4.4 mmol/L (3.5-5.1); Sodium 134 mmol/L (137-145)
[2016-09-02 06:37] LABS: Glucose,Whole Blood 144 mg/dL (75-99)
[2016-09-02] MEDS: CARVEDILOL 3.125 MG TAB PO SCH ×2 (06:39→17:41)
[2016-09-02] MEDS: INSULIN LISPRO (humaLOG) 300 UNIT/3 ML VIAL SQ SCH ×4 (06:39→22:14)
[2016-09-02] MEDS: IPRATROPIUM-ALBUTEROL 3 ML NEB INHALATION SCH ×4 (08:36→18:34)
[2016-09-02] MEDS: guaiFENesin 600 MG TABLET.ER PO SCH ×2 (08:44→21:08)
[2016-09-02] MEDS: FAMOTIDINE 20 MG TAB PO SCH ×2 (08:44→21:08)
[2016-09-02] MEDS: APIXABAN 2.5 MG TABLET PO SCH ×2 (08:44→21:08)
[2016-09-02] MEDS: hydrALAZINE HCL 50 MG TAB PO SCH ×3 (08:44→22:15)
[2016-09-02] MEDS: SPIRONOLACTONE 25 MG TAB PO SCH (08:44)
[2016-09-02] MEDS: LEVOFLOXACIN 500 MG TAB PO SCH (08:44)
[2016-09-02] MEDS: ATORVASTATIN 40 MG TAB PO SCH (08:45)
[2016-09-02] MEDS: POTASSIUM CHLORIDE ER 20 MEQ TAB.ER PO SCH ×2 (08:45→21:08)
[2016-09-02] MEDS: ASPIRIN 81 MG CHEW PO SCH (08:45)
[2016-09-02] MEDS: FUROSEMIDE 40 MG TAB PO SCH ×2 (08:45→16:12)
[2016-09-02] MEDS ORDERED: SENNOSIDES-DOCUSATE SODIUM 1 EACH TAB PO STA (08:59)
--- NOTE | 2016-09-02 10:43 | ECHOF ---
Referral Reason:icm MEASUREMENTS -------- HEIGHT: 182.9 cm WEIGHT: 57.1 kg BP: 117/66 RVIDd: 3.0 cm (< 3.3) IVSd: 1.3 cm (0.6 - 1.1) LVIDd: 5.7 cm (3.9 - 5.3) LVPWd: 1.4 cm (0.6 - 1.1) IVSs: 1.5 cm LVIDs: 5.2 cm LVPWs: 1.6 cm LA Diam: 5.8 cm (2.7 - 3.8) LAESV Index (A-L): 103.80 ml/m Ao Diam: 4.0 cm (2.0 - 3.7) AV Cusp: 1.8 cm (1.5 - 2.6) MV EXCURSION: 23.970 mm (> 18.000) MV EF SLOPE: 87 mm/s (70 - 150) EPSS: 1.7 cm MV E Arpan: 0.56 m/s MV DecT: 313 ms MV A Arapn: 0.24 m/s MV E/A Ratio: 2.28 RAP: 5.00 mmHg RVSP: 27.32 mmHg FINDINGS -------- This was a technically good study. The left ventricular size is normal. There is moderate concentric left ventricular hypertrophy. Overall left ventricular systolic function is severely impaired with, an EF between 20 - 25 %. The LV end diastolic pressure is elevated 18.17. There is suspected spontaneous contrast seen in the left ventricle. The right ventricle is normal in size and function. LA is severely dilated >40 ml/m2 The right atrium is normal in size. Aortic valve is trileaflet and is mildly thickened. The mitral valve leaflets are mildly thickened. Mild mitral annular calcification present. Mild mitral regurgitation is present. Mild tricuspid regurgitation present. Right ventricular systolic pressure is normal at < 35 mmHg. The pulmonic valve was not well visualized. The aortic root is dilated measuring 4.0cm. There is no pericardial effusion. CONCLUSIONS -------- 1. This was a technically good study. 2. Aortic valve is trileaflet and is mildly thickened. 3. The mitral valve leaflets are mildly thickened. 4. Mild mitral annular calcification present. 5. Mild mitral regurgitation is present. 6. Mild tricuspid regurgitation present. 7. Right ventricular systolic pressure is normal at < 35 mmHg. 8. The pulmonic valve was not well visualized. 9. The aortic root is dilated measuring 4.0cm. 10. There is no pericardial effusion. 11. The left ventricular size is normal. 12. There is moderate concentric left ventricular hypertrophy. 13. Overall left ventricular systolic function is severely impaired with, an EF between 20 - 25 %. 14. The LV end diastolic pressure is elevated 18.17. 15. There is suspected spontaneous contrast seen in the left ventricle. 16. The right ventricle is normal in size and function. 17. LA is severely dilated >40 ml/m2 18. The right atrium is normal in size. [employer]IGENCE [employer] SUPERVISOR: Vijaya Branham RDCS
[2016-09-02] MEDS: ISOSORBIDE MONONITRATE ER 30 MG TAB.ER.24H PO SCH (11:44)
[2016-09-02 11:45] LABS: Glucose,Whole Blood 141 mg/dL (75-99)
[2016-09-02] MEDS: THIAMINE 100 MG TAB PO SCH ×2 (11:45→17:41)
--- NOTE | 2016-09-02 13:46 | P.PN ---
Subjective Is a 75-year-old gentleman patient of Dr. Caldwell and Dr. Benjamin, he has underlying history of CHF, CAD, COPD, CK D, PAD, chronic atrial fibrillation, asthma, noncompliance, previous PE and DVT, current smoker history of pacemaker , [id number] amputation left side, admitted to the hospital secondary to shortness of breath for approximately 6 weeks presenting with with orthopnea wheezing shortness of breath difficulty of breathing and left-sided pleurisy. Patient ran out of this medication for the past 2-3 months has had difficulty in obtaining a visit with Dr. Caldwell as he needs 3 by his rides to get to the clinic, he navigates through his manual wheelchair. He currently smokes 1-1/2 pack per day has a nebulizer machine no O2 requirements and was seen in the emergency room secondary to CHF exacerbation as well as COPD exacerbation. He refused to see a pulmonary physician. In the emergency room, EKG showed ventricular rate of 64, atrial sensed ventricular paced rhythm with prolonged AV conduction chest x-ray shows cardiomegaly congestive heart failure is emptying with superimposed CHF and interstitial pulmonary edema and small pleural effusion with atelectasis and or consultation focal left mid lung opacification 09/01: CT of the chest reveals cardiomegaly with prominent left atrial dilatation and pulmonary artery hypertension, COPD with moderate emphysema, small right pleural effusion correlate for heart failure. Patchy atelectasis or infiltrate right base and atelectasis left base. 2.2 cm pulmonary nodule left mid lung which is new from October 2014. Possible 9 mm left basilar pulmonary nodule. Mediastinal lymphadenopathy measuring up to 1.9 cm seems to have been present in 2014. This suggests benign etiology. Patient has been seen by Dr. Benjamin and he has added beta brooke, nitrate and Aldactone. Echocardiogram is pending. No plan for aggressive workup.patient continues to have wheezing and DuoNeb treatments have been added. Solu-Medrol changed to 40 mg IV every 8 hours. 09/02: Patient is on oral Lasix. Solu-Medrol will be switched over to oral prednisone. He states he is not sleeping at night for which melatonin has been added. Patient is concerned that he is not able to follow up with Dr. Caldwell due to transportation issues. Social work consult will be requested. Patient will be transferred to the [facility] floor. Anticipate discharge home tomorrow. Objective - Vital Signs Vital signs: Vital Signs Temp 97.1 F L 09/02/16 03:38 Pulse 63 09/02/16 08:00 Resp 16 09/02/16 08:00 BP 123/67 09/02/16 08:00 Pulse Ox 96 09/02/16 08:37 Intake & Output 09/01/16 09/02/16 09/02/16 18:59 06:59 18:59 Intake Total 180 1360 220 Output Total 660 950 Balance -480 410 220 Weight 62 kg 58.6 kg Intake: IV 160 Sodium Chloride 0.9% 1, 160 000 ml @ 20 mls/hr IV . Q24H [facility] Rx#:[id number] Oral 180 1200 220 Output: Urine 660 950 Other: Voiding Method Urinal - Exam - Constitutional General appearance: cooperative, no acute distress - EENT Eyes: anicteric sclerae, EOMI, PERRLA, dentition normal ENT: hard of hearing, NA/AT, normal oropharynx - Neck Neck: no lymphadenopathy, normal ROM, no other, no rigidity, no stridor, no thyromegaly - Respiratory Respiratory: bilateral: CTA, negative: diminished, dullness, rales, rhonchi, wheezing, prolonged expiration - Cardiovascular Rhythm: regular Heart sounds: normal: S1, S2 Abnormal Heart Sounds: systolic murmur, no diastolic murmur, no rub, no S3 Gallop, no S4 Gallop, no click, no other - Gastrointestinal General gastrointestinal: decreased bowel sounds, normal bowel sounds, soft - Integumentary Integumentary: normal, normal turgor - Neurologic Neurologic: CNII-XII intact - Musculoskeletal Musculoskeletal: gait normal, strength equal bilaterally - Psychiatric Psychiatric: A&O x's 3, appropriate affect, intact judgment & insight - Labs CBC & Chem 7: 09/01/16 06:10 09/02/16 05:49 Labs: Abnormal Lab Results - Last 24 Hours (Table) 09/01/16 09/01/16 09/01/16 Range/Units 11:47 16:36 21:44 Sodium (137-145) mmol/L Carbon Dioxide (22-30) mmol/L BUN (9-20) mg/dL Glucose (74-99) mg/dL POC Glucose (mg/dL) 102 H 149 H 145 H (75-99) mg/dL 09/02/16 09/02/16 Range/Units 05:49 06:34 Sodium 134 L (137-145) mmol/L Carbon Dioxide 21 L (22-30) mmol/L BUN 39 H (9-20) mg/dL Glucose 140 H (74-99) mg/dL POC Glucose (mg/dL) 144 H (75-99) mg/dL Microbiology - Last 24 Hours (Table) 09/01/16 20:31 Gram Stain - Preliminary Sputum Sputum Culture - Preliminary Assessment and Plan Plan: 1. Acute on chronic systolic noncompliance for several weeks on his treatment, IV Lasix changed to oral by cardiology. Consults were made with cardiology, echocardiogram was requested, computed tomography scan high resolution was requested to evaluate the left lung nodule that was noted. Spironolactone was started 2. COPD exacerbation with underlying pneumonitis/infiltrate noted on chest x- ray, patient was started on Solu-Medrol IV 40 mg every 8 hours changed to oral prednisone along with nebulized albuterol Atrovent, IV Levaquin 2. History of CAD status post CABG 2 with ischemic cardiomyopathy we will continue the patient on hydralazine 50 mg orally 3 times every day, aspirin 81 mg orally once every day. Imdur daily was started continue on beta blockers he is on Coreg 2.25 mg twice a day 3. Hypertension and hypertensive cardiovascular disease we will continue the patient on hydralazine 50 mg orally 3 times every day. 4. Severe PAD status post bilateral fem-pop bypasses and currently is having a big issues on his left lower extremity with gangrenous changes with impending amputation, was seen and evaluated by Dr. Cortes at [facility] and he would be admitted to our hospital after discussing with Dr. Tracey for possible left above-knee inpatient tomorrow morning. 5. Bilateral pulmonary emboli continue the patient is off Xarelto. 6. Chronic tobacco use and dependence with chronic obstructive pulmonary disease continue the patient on DuoNeb nebulization 3 times a day as well as Pulmicort 0.5 mg nebulization twice every day. 7. Benign prostatic hypertrophy continue Flomax 0.4 mg orally once every day. 8. Phantom leg pain left side patient can have tramadol on a when necessary basis 9. DVT prophylaxis currently on Lovenox 40 mg subcutaneous every 24 hours. 10. GI prophylaxis start the patient on omeprazole 20 mg orally once every day. 11. Long-term anticoagulation with eliquis 12. No code. Discharge plan: home with [facility] tomorrow Impression and plan of care have been directed as dictated by the signing physician. Sirisha Zayas nurse practitioner acting as scribe for signing physician. Time with Patient: Greater than 30
--- NOTE | 2016-09-02 15:52 | P.PN ---
Subjective Principal diagnosis: Shortness of breath This is a 75-year-old gentleman with known history of coronary artery disease and prior bypass surgery, ischemic cardio myopathy with prior AICD implant, paroxysmal atrial fibrillation, severe peripheral vascular disease status post left AKA, noncompliance, who presented to the hospital with symptoms of progressive dyspnea with associated cough. Patient has a history of chronic tobacco use as well as history of chronic EtOH abuse. Currently being treated for exacerbation of COPD along with systolic congestive heart failure. Overall the patient states he feels much better today, lying flat in bed at the time of my examination. Blood pressure 138/68 with a heart rate in the 60s. Potassium 4.4 today, BUN 39, creatinine 1.1. Objective - Vital Signs Vital signs: Vital Signs Temp 97.1 F L 09/02/16 03:38 Pulse 64 09/02/16 11:42 Resp 16 09/02/16 11:42 BP 139/68 09/02/16 11:42 Pulse Ox 96 09/02/16 11:42 Intake & Output 09/01/16 09/02/16 09/02/16 18:59 06:59 18:59 Intake Total 180 1360 440 Output Total 660 950 500 Balance -480 410 -60 Weight 62 kg 58.6 kg Intake: IV 160 Sodium Chloride 0.9% 1, 160 000 ml @ 20 mls/hr IV . Q24H [facility] Rx#:[id number] Oral 180 1200 440 Output: Urine 660 950 500 Other: Voiding Method Urinal - Exam PHYSICAL EXAMINATION: HEENT: Head is atraumatic, normocephalic. Pupils equal, round. Neck is supple. There is no elevated jugular venous pressure. HEART EXAMINATION: Heart S1 and S2, systolic murmur heard. CHEST EXAMINATION: Lungs reveal improvement in air entry bilaterally. ABDOMEN: Soft, nontender. Bowel sounds are heard. No organomegaly noted. EXTREMITIES:[ 1+ pulse to the right lower extremity patient has a left below the knee amputation. NEUROLOGIC patient is awake, alert and oriented -3. . - Labs CBC & Chem 7: 09/01/16 06:10 09/02/16 05:49 Labs: Abnormal Lab Results - Last 24 Hours (Table) 09/01/16 09/01/16 09/02/16 Range/Units 16:36 21:44 05:49 Sodium 134 L (137-145) mmol/L Carbon Dioxide 21 L (22-30) mmol/L BUN 39 H (9-20) mg/dL Glucose 140 H (74-99) mg/dL POC Glucose (mg/dL) 149 H 145 H (75-99) mg/dL 09/02/16 09/02/16 Range/Units 06:34 11:42 Sodium (137-145) mmol/L Carbon Dioxide (22-30) mmol/L BUN (9-20) mg/dL Glucose (74-99) mg/dL POC Glucose (mg/dL) 144 H 141 H (75-99) mg/dL Microbiology - Last 24 Hours (Table) 09/01/16 20:31 Gram Stain - Preliminary Sputum Sputum Culture - Preliminary Assessment and Plan (1) Systolic CHF, acute on chronic Status: Acute (2) COPD (chronic obstructive pulmonary disease) Status: Acute (3) Ischemic cardiomyopathy Status: Acute (4) History of left below knee amputation Status: Acute (5) Peripheral vascular disease of lower extremity Status: Acute (6) AICD (automatic cardioverter/defibrillator) present Status: Acute (7) Hx of CABG Status: Acute (8) Noncompliance Status: Acute Plan: From cardiology's perspective, we'll continue the patient's current medications. Plan for possible discharge home in 24 hours if stable. DNP note has been reviewed, I agree with a documented findings and plan of care. Patient was seen and examined.
[2016-09-02 17:20] LABS: Glucose,Whole Blood 105 mg/dL (75-99)
[2016-09-02] MEDS ORDERED: MELATONIN 5 MG TABLET PO SCH (21:00)
[2016-09-02] MEDS: SODIUM CHLORIDE 0.9% 1,000 ML IV SCH (21:09)
[2016-09-02 21:23] LABS: Glucose,Whole Blood 132 mg/dL (75-99)
[2016-09-03 01:23] VITALS: RESP 18
[2016-09-03 07:14] LABS: Glucose,Whole Blood 97 mg/dL (75-99)
[2016-09-03] MEDS: INSULIN LISPRO (humaLOG) 300 UNIT/3 ML VIAL SQ SCH ×3 (07:26→17:33)
[2016-09-03 07:35] VITALS: BP 121/74; TEMP 96.2
[2016-09-03] MEDS: ATORVASTATIN 40 MG TAB PO SCH (07:42)
[2016-09-03] MEDS: ASPIRIN 81 MG CHEW PO SCH (07:42)
[2016-09-03] MEDS: CARVEDILOL 3.125 MG TAB PO SCH ×2 (07:42→17:33)
[2016-09-03] MEDS: APIXABAN 2.5 MG TABLET PO SCH (07:42)
[2016-09-03] MEDS: guaiFENesin 600 MG TABLET.ER PO SCH (07:43)
[2016-09-03] MEDS: FUROSEMIDE 40 MG TAB PO SCH ×2 (07:43→17:13)
[2016-09-03] MEDS: ISOSORBIDE MONONITRATE ER 30 MG TAB.ER.24H PO SCH (07:43)
[2016-09-03] MEDS: FAMOTIDINE 20 MG TAB PO SCH (07:43)
[2016-09-03] MEDS: LEVOFLOXACIN 500 MG TAB PO SCH (07:43)
[2016-09-03] MEDS: POTASSIUM CHLORIDE ER 20 MEQ TAB.ER PO SCH (07:43)
[2016-09-03] MEDS: hydrALAZINE HCL 50 MG TAB PO SCH ×2 (07:43→17:33)
[2016-09-03] MEDS: SPIRONOLACTONE 25 MG TAB PO SCH (07:44)
[2016-09-03] MEDS ORDERED: predniSONE 20 MG TAB PO SCH (09:00)
[2016-09-03] MEDS: IPRATROPIUM-ALBUTEROL 3 ML NEB INHALATION SCH ×4 (09:11→15:53)
[2016-09-03 11:56] LABS: Glucose,Whole Blood 97 mg/dL (75-99)
[2016-09-03] MEDS: THIAMINE 100 MG TAB PO SCH ×2 (12:10→17:33)
[2016-09-03 16:41] VITALS: PULSE 61
[2016-09-03 17:22] LABS: Glucose,Whole Blood 112 mg/dL (75-99)
--- NOTE | 2016-09-09 15:10 | P.DS ---
Providers Date of admission: 08/30/16 22:07 Expected date of discharge: 09/03/16 Attending physician: Valery Eid Consults: 08/31/16 00:14 Consult Physician Routine Consulting Provider: Harriett Benjamin Consult Reason/Comments: CHF, elevated troponin Do you want consulting provider notified?: Yes, Notify in am Primary care physician: Thad Caldwell [facility] Course: Is a 75-year-old gentleman patient of Dr. Caldwell and Dr. Benjamin, he has underlying history of CHF, CAD, COPD, CK D, PAD, chronic atrial fibrillation, asthma, noncompliance, previous PE and DVT, current smoker history of pacemaker , [id number] amputation left side, admitted to the hospital secondary to shortness of breath for approximately 6 weeks presenting with with orthopnea wheezing shortness of breath difficulty of breathing and left-sided pleurisy. Patient ran out of this medication for the past 2-3 months has had difficulty in obtaining a visit with Dr. Caldwell as he needs 3 by his rides to get to the clinic, he navigates through his manual wheelchair. He currently smokes 1-1/2 pack per day has a nebulizer machine no O2 requirements and was seen in the emergency room secondary to CHF exacerbation as well as COPD exacerbation. He refused to see a pulmonary physician. In the emergency room, EKG showed ventricular rate of 64, atrial sensed ventricular paced rhythm with prolonged AV conduction chest x-ray shows cardiomegaly congestive heart failure is emptying with superimposed CHF and interstitial pulmonary edema and small pleural effusion with atelectasis and or consultation focal left mid lung opacification 09/01: CT of the chest reveals cardiomegaly with prominent left atrial dilatation and pulmonary artery hypertension, COPD with moderate emphysema, small right pleural effusion correlate for heart failure. Patchy atelectasis or infiltrate right base and atelectasis left base. 2.2 cm pulmonary nodule left mid lung which is new from October 2014. Possible 9 mm left basilar pulmonary nodule. Mediastinal lymphadenopathy measuring up to 1.9 cm seems to have been present in 2014. This suggests benign etiology. Patient has been seen by Dr. Benjamin and he has added beta brooke, nitrate and Aldactone. Echocardiogram is pending. No plan for aggressive workup.patient continues to have wheezing and DuoNeb treatments have been added. Solu-Medrol changed to 40 mg IV every 8 hours. 09/02: Patient is on oral Lasix. Solu-Medrol will be switched over to oral prednisone. He states he is not sleeping at night for which melatonin has been added. Patient is concerned that he is not able to follow up with Dr. Caldwell due to transportation issues. Social work consult will be requested. Patient will be transferred to the [facility] floor. Anticipate discharge home tomorrow. 09/03: Patient's respiratory status continues to improve. Patient will be discharged home today in stable condition. Discharge Diagnoses: 1. Acute on chronic systolic heart failure due to noncompliance for several weeks on his treatment 2. COPD exacerbation with underlying pneumonitis 2. History of CAD status post CABG 2 with ischemic cardiomyopathy 3. Hypertension and hypertensive cardiovascular disease 4. Severe PAD status post bilateral fem-pop bypasses and [id number] amputation 5. Bilateral pulmonary emboli 6. Chronic tobacco use and dependence with chronic obstructive pulmonary disease 7. Benign prostatic hypertrophy 8. Phantom leg pain left side 9. Long-term anticoagulation with eliquis Discharge plan: home with [facility] Impression and plan of care have been directed as dictated by the signing physician. Sirisha Zayas nurse practitioner acting as scribe for signing physician. Patient Condition at Discharge: Good Plan - Discharge Summary New Discharge Prescriptions: Atorvastatin [Lipitor] 40 mg PO DAILY #30 tab Carvedilol [Coreg] 3.125 mg PO BID-W/MEALS #60 tab Famotidine [Pepcid] 20 mg PO BID #60 tab Furosemide [Lasix] 40 mg PO BID@0900,1600 #60 tab Ipratropium-Albuterol Nebulize [Duoneb 0.5 mg-3 mg/3 ml Soln] 3 ml INHALATION RT -Q4H PRN #120 ampul.neb PRN Reason: Wheezing Isosorbide Mononitrate ER [Imdur] 30 mg PO DAILY 30 Days Levofloxacin [Levaquin] 500 mg PO DAILY #7 tab Melatonin 5 mg PO HS #30 tablet Potassium Chloride ER [K-Dur 20] 20 meq PO BID #60 tab.er.prt Spironolactone [Aldactone] 25 mg PO DAILY #30 tab predniSONE 40 mg PO DAILY #15 tab Discharge Medication List Aspirin 81 mg PO DAILY chew 10/18/14 [Rx] hydrALAZINE HCL [Apresoline] 50 mg PO TID #90 tab 10/18/14 [Rx] Thiamine [Vitamin B-1] 100 mg PO BID@1200,1700 tab 05/28/15 [Rx] Apixaban [Eliquis] 2.5 mg PO BID #60 09/03/16 [Rx] Atorvastatin [Lipitor] 40 mg PO DAILY #30 tab 09/03/16 [Rx] Carvedilol [Coreg] 3.125 mg PO BID-W/MEALS #60 tab 09/03/16 [Rx] Famotidine [Pepcid] 20 mg PO BID #60 tab 09/03/16 [Rx] Furosemide [Lasix] 40 mg PO BID@0900,1600 #60 tab 09/03/16 [Rx] Ipratropium-Albuterol Nebulize [Duoneb 0.5 mg-3 mg/3 ml Soln] 3 ml INHALATION RT -Q4H PRN #120 ampul.neb 09/03/16 [Rx] Isosorbide Mononitrate ER [Imdur] 30 mg PO DAILY 30 Days 09/03/16 [Rx] Levofloxacin [Levaquin] 500 mg PO DAILY #7 tab 09/03/16 [Rx] Melatonin 5 mg PO HS #30 tablet 09/03/16 [Rx] Potassium Chloride ER [K-Dur 20] 20 meq PO BID #60 tab.er.prt 09/03/16 [Rx] Spironolactone [Aldactone] 25 mg PO DAILY #30 tab 09/03/16 [Rx] predniSONE 40 mg PO DAILY #15 tab 09/03/16 [Rx] Follow up Appointment(s)/Referral(s): Harriett Benjamin MD [STAFF PHYSICIAN] - 2 Weeks Thad Caldwell MD [Primary Care Provider] - 1 Week [facility] Visiting Nurse, [NON-STAFF] - Patient Instructions/Handouts: Heart Failure (DC) Discharge Disposition: HOME WITH HOME HEALTH SERVICES
== END 2016-09-03 19:06 | disposition home health service (06) | DRG 291 ==
LOC: EC 19:11 → 6SEL 22:07 → 4MS4W 09-02 17:05
PROVIDERS: ADMIT Family Medicine; ATTEND Family Medicine
DX: I11.0 Hypertensive heart disease with heart failure (principal); I26.99 Other pulmonary embolism without acute cor pulmonale; J18.9 Pneumonia, unspecified organism; J44.1 Chronic obstructive pulmonary disease with (acute) exacerbation; J44.0 Chronic obstructive pulmonary disease with (acute) lower respiratory infection; I48.0 Paroxysmal atrial fibrillation; I27.2 Other secondary pulmonary hypertension; I48.2 Chronic atrial fibrillation; D64.9 Anemia, unspecified; I25.5 Ischemic cardiomyopathy; F32.9 Major depressive disorder, single episode, unspecified; I25.10 Atherosclerotic heart disease of native coronary artery without angina pectoris; E78.5 Hyperlipidemia, unspecified; F17.200 Nicotine dependence, unspecified, uncomplicated; I25.2 Old myocardial infarction; I50.23 Acute on chronic systolic (congestive) heart failure; I73.9 Peripheral vascular disease, unspecified; J45.909 Unspecified asthma, uncomplicated; K21.9 Gastro-esophageal reflux disease without esophagitis; N40.0 Benign prostatic hyperplasia without lower urinary tract symptoms; F10.10 Alcohol abuse, uncomplicated; K44.9 Diaphragmatic hernia without obstruction or gangrene; K57.90 Diverticulosis of intestine, part unspecified, without perforation or abscess without bleeding; K64.8 Other hemorrhoids; R91.1 Solitary pulmonary nodule; R01.1 Cardiac murmur, unspecified; M54.9 Dorsalgia, unspecified; G89.29 Other chronic pain; G54.6 Phantom limb syndrome with pain; Z79.01 Long term (current) use of anticoagulants; Z79.899 Other long term (current) drug therapy; Z79.82 Long term (current) use of aspirin; Z89.512 Acquired absence of left leg below knee; Z91.19 Patient's noncompliance with other medical treatment and regimen; Z95.1 Presence of aortocoronary bypass graft; Z95.810 Presence of automatic (implantable) cardiac defibrillator; Z82.49 Family history of ischemic heart disease and other diseases of the circulatory system
CPT/HCPCS: 36415; 71020; 71250; 80048; 80053; 82550; 82553; 83036; 83880; 84484; 85025; 85379; 85610; 85730; 87070; 87205; 93005; 93306; 94640; 94760; 96374; 99285

== ENCOUNTER → 2017-05-15 | Day surgery (SDC) | payer MEDICARE ==
[2017-05-14 10:41] VITALS: BMI 17.9
[~2017-05-15] MED LIST: LIDOCAINE 2% INJ 20 MG/ML SQ ONE
[2017-05-15 12:01] VITALS: RESP 18
[2017-05-15 12:06] LABS: Basophils % (A) 0 %; CH 34.7; Eosinophils % (A) 0 %; HCT 41.4 % (39.0-53.0); HDW 2.22; Luc # (Auto) 0.21; Luc % (Auto) 2; Lymphocytes # (A) 0.5 k/uL (1.0-4.8); Lymphocytes % (A) 5 %; MCH 35.7 pg (25.0-35.0); MCHC 33.8 g/dL (31.0-37.0); MCV 105.8 fL (80.0-100.0); Macrocytosis Moderate; Mean Platelet Volume 8.2; Monocytes # (A) 0.5 k/uL (0-1.0); Monocytes % (A) 5 %; Neutrophils # (A) 9.1 k/uL (1.3-7.7); Neutrophils % (A) 88 %; RBC 3.91 m/uL (4.30-5.90); RDW 15.6 % (11.5-15.5); WBC 10.4 k/uL (3.8-10.6); WBC (Perox) 10.04
[2017-05-15 15:06] VITALS: PULSE 62; TEMP 98.2
[2017-05-15 15:07] VITALS: BP 151/67
--- NOTE | 2017-05-15 15:10 | IR ---
EXAMINATION TYPE: IR cvc insert >=5 years DATE OF EXAM: 05/15/2017 COMPARISON: NONE CLINICAL HISTORY: Pneumonia Needs long-term intravenous access for antibiotics. PROCEDURE: After informed consent, the skin overlying the right basilic vein was localized with ultrasound and n oted to be compressible and patent. An ultrasound image was obtained and submitted on the patient's chart. The overlying skin was prepped and draped and Lidocaine was used for local anesthesia. A ski n marcos was made with a scalpel. Access was gained to the vein under ultrasound guidance with a 21 ga uge needle and a 0.018 inch wire was advanced. Access site was dilated with Peel-Away sheath and cat heter tailored to the appropriate length and advanced such that the distal tip is at the cavoatrial j unction. Spot image was obtained verifying placement. Catheter was fixed to the skin with suture an d a sterile dressing was placed following hemostasis. Catheter was aspirated and flushed with saline . Patient was discharged in stable condition without complication.Maximal barrier technique is utili zed. Ultrasound image is documented on the chart. Ultrasound used with sterile technique. Fluoro time and fluoroscopic images submitted to document procedure: 34 intraoperative C-arm images, 0.3 minutes fluoroscopy time IMPRESSION: STATUS POST ULTRASOUND AND FLUOROSCOPIC GUIDED PICC LINE PLACEMENT, READY FOR USE. THIS PROCEDURE WAS PERFORMED BY THE UNDERSIGNED.
== END ==
LOC: CATHCVL 11:28
PROVIDERS: ATTEND Radiology Diagnostic Radiology
DX: Z46.89 Encounter for fitting and adjustment of other specified devices (principal); J18.9 Pneumonia, unspecified organism; Z79.2 Long term (current) use of antibiotics
CPT/HCPCS: 36569; 76937; 77001; 85025; C1751; C1769; J2001

== ENCOUNTER 2017-08-22 12:00 | Observation (INO) | payer MEDICARE ==
[2017-08-22] MEDS ORDERED: SODIUM CHLORIDE 0.9% 1,000 ML IV STA (12:24)
--- NOTE | 2017-08-22 12:24 | ED ---
Fall HPI - General Chief Complaint: Fall Stated Complaint: Fall Time Seen by Provider: 08/22/17 12:11 Source: patient, EMS Mode of arrival: EMS - History of Present Illness Initial Comments: 76 years old male on [place] fell last night while transferring from wheelchair to his chair he fell face first has a large abrasion on his forehead denies any loss of consciousness no neck pain no nausea no vomiting no also has a scrape on his right elbow his tetanus is up-to-date he said injury happened about last night about 1214 hrs. ago, he said he had a chest pain this morning he does get chest pain frequent no shortness of breath no break pain no fever no chills no symptoms of TIA or CVA - Related Data Home Medications Medication Instructions Recorded Confirmed Cyanocobalamin (Vitamin B-12) 1,000 mcg PO DAILY 05/14/17 08/22/17 [Vitamin B12] Furosemide [Lasix] 40 mg PO DAILY 05/14/17 08/22/17 Potassium Chloride ER [K-Dur 20] 20 meq PO DAILY 05/14/17 08/22/17 Previous Rx's Medication Instructions Recorded Aspirin 81 mg PO DAILY chew 10/18/14 Thiamine [Vitamin B-1] 100 mg PO BID@1200,1700 tab 05/28/15 Apixaban [Eliquis] 2.5 mg PO BID #60 09/03/16 Atorvastatin [Lipitor] 40 mg PO DAILY #30 tab 09/03/16 Carvedilol [Coreg] 3.125 mg PO BID-W/MEALS #60 tab 09/03/16 Famotidine [Pepcid] 20 mg PO BID #60 tab 09/03/16 Spironolactone [Aldactone] 25 mg PO DAILY #30 tab 09/03/16 Allergies Allergy/AdvReac Type Severity Reaction Status Date / Time levofloxacin [From Levaquin] Allergy "tendon Verified 08/22/17 12:51 pops"/RASH rofecoxib [From Vioxx] Allergy Rash/Hives Verified 08/22/17 12:51 Review of Systems ROS Statement: Those systems with pertinent positive or pertinent negative responses have been documented in the HPI. ROS Other: All systems not noted in ROS Statement are negative. Past Medical History Past Medical History: Atrial Fibrillation, Coronary Artery Disease (CAD), Heart Failure, COPD, Deep Vein Thrombosis (DVT), GERD/Reflux, Hyperlipidemia, Hypertension, Myocardial Infarction (WA), Pneumonia, Vascular Disorder Additional Past Medical History / Comment(s): Other HX: ischemic cardiomegaly with L atrial enlargement, CHF systolic dysfunction, NSTEMI (pt unaware of previous [place] or A-Fib), PVD, PAD, hiatal hernia, R leg fx in past, internal hemorrhoids and diverticulosis, current pneumonia, hernia rt inguinal area Last Myocardial Infarction Date:: unkn History of Any Multi-Drug Resistant Organisms: MRSA Date of last positivie culture/infection: 02/03/2015 MDRO Source:: Left Foot Past Surgical History: Coronary Bypass/CABG, Heart Catheterization, Hernia Repair, Pacemaker Additional Past Surgical History / Comment(s): CABG 1974, CABG 1999, AICD 2004 removed and replaced with pacemaker 04/05/2015 at [facility]. femoropopliteal graft Rt graft complicated by post op infection 2007, colonoscopy with polypectomy transverse colon, umbilical hernia repair. 2015 PICC Line-removed, left AKA, hemorrhoids, lt inguinal and umbilical hernia Past Anesthesia/Blood Transfusion Reactions: Motion Sickness Additional Past Anesthesia/Blood Transfusion Reaction / Comment(s): Pt has recieved blood without reaction. Type of Cardiac Device: Permanent Pacemaker Device Placement Date:: 04/05/2015 Past Psychological History: Depression Smoking Status: Current every day smoker Past Alcohol Use History: Abuse Past Drug Use History: None Reported - Past Family History Brother(s) Family Medical History: Cancer Additional Family Medical History / Comment(s): prostate Father Family Medical History: Myocardial Infarction (WA) Additional Family Medical History / Comment(s): Father at age 48 of [place]. Mother Family Medical History: Cancer Additional Family Medical History / Comment(s): Mother at age 51 of some form of cancer. General Exam - General Exam Comments Initial Comments: General: The patient is awake and alert, in no distress, and does not appear acutely ill. Skin: Skin is warm and dry and no rashes or lesions are noted. Has a large abrasion on his forehead, has a laceration on the right elbow, it's about 7 x 3 Cm in Dimension Eye: Pupils are equal, round and reactive to light, extra-ocular movements are intact; there is normal conjunctiva bilaterally. Ears, nose, mouth and throat: There are moist mucous membranes and no oral lesions. Neck: The neck is supple, there is no tenderness Cardiovascular: There is a regular rate and rhythm. No murmur, rub or gallop is appreciated. Respiratory: To auscultation bilateral, exam consistent with a moderate to severe COPD Gastrointestinal: Soft, non-distended, non-tender abdomen without masses or organomegaly noted. There is no rebound or guarding present. Bowel sounds are unremarkable. Back: There is no tenderness to palpation in the midline. There is no obvious deformity. Musculoskeletal: Normal ROM, he has an above-knee amputation on the left leg. Neurological: CN II-XII intact, Cranial nerves III through XII are intact. There are no obvious motor or sensory deficits. Coordination appears grossly intact. Speech is normal. Psychiatric: Cooperative, appropriate mood & affect, normal judgment. Limitations: physical limitation Course Vital Signs 08/22/17 08/22/17 12:06 13:15 Temperature 97.0 F L Pulse Rate 75 60 Respiratory 16 16 Rate Blood Pressure 161/88 155/74 O2 Sat by Pulse 95 97 Oximetry Him EKG is ventricular paced rhythm medical rate is 66 QRS duration is 200 QT/ QTc is 540/566 and it is a paced rhythm - Reevaluation(s) Reevaluation #1: At 1400 he still has a mild chest pain though his EKG is paced and troponin is unremarkable but he has a significant history of coronary artery disease and multiple other comorbidities considering that he be admitted for 3 sets of cardiac markers cardiology consult under Dr. Caldwell's group, help his right elbow has a laceration, there is orbit just skin is sitting and skin is paperthin he is not a candidate for any laceration repair we can clean up the wound with normal saline dressing with nonstick dressing and some topical antibiotics 08/22/17 14:15 08/22/17 14:15 Medical Decision Making - Lab Data Result diagrams: 08/22/17 13:15 08/22/17 13:15 Lab Results 08/22/17 08/22/17 08/22/17 Range/Units 13:15 13:15 13:15 WBC 8.5 (3.8-10.6) k/uL RBC 4.56 (4.30-5.90) m/uL Hgb 15.8 (13.0-17.5) gm/dL Hct 47.7 (39.0-53.0) % MCV 104.6 H (80.0-100.0) fL MCH 34.7 (25.0-35.0) pg MCHC 33.2 (31.0-37.0) g/dL RDW 14.6 (11.5-15.5) % Plt Count 224 (150-450) k/uL Neutrophils % 75 % Lymphocytes % 17 % Monocytes % 5 % Eosinophils % 2 % Basophils % 1 % Neutrophils # 6.4 (1.3-7.7) k/uL Lymphocytes # 1.4 (1.0-4.8) k/uL Monocytes # 0.4 (0-1.0) k/uL Eosinophils # 0.1 (0-0.7) k/uL Basophils # 0.1 (0-0.2) k/uL Macrocytosis Moderate PT (9.0-12.0) sec INR (<1.2) APTT (22.0-30.0) sec Sodium 136 L (137-145) mmol/L Potassium 4.5 (3.5-5.1) mmol/L Chloride 97 L (98-107) mmol/L Carbon Dioxide 19 L (22-30) mmol/L Anion Gap 20 mmol/L BUN 17 (9-20) mg/dL Creatinine 0.79 (0.66-1.25) mg/dL Est GFR (MDRD) Af Amer >60 (>60 ml/min/1.73 sqM) Est GFR (MDRD) Non-Af >60 (>60 ml/min/1.73 sqM) Glucose 69 L (74-99) mg/dL Calcium 9.7 (8.4-10.2) mg/dL Magnesium 1.9 (1.6-2.3) mg/dL Total Bilirubin 1.6 H (0.2-1.3) mg/dL AST 36 (17-59) U/L ALT 19 L (21-72) U/L Alkaline Phosphatase 124 (38-126) U/L Total Creatine Kinase 119 (55-170) U/L CK-MB (CK-2) 3.2 H* (0.0-2.4) ng/mL CK-MB (CK-2) Rel Index 2.7 Troponin I 0.029 (0.000-0.034) ng/mL Total Protein 7.3 (6.3-8.2) g/dL Albumin 4.2 (3.5-5.0) g/dL 08/22/17 Range/Units 13:15 WBC (3.8-10.6) k/uL RBC (4.30-5.90) m/uL Hgb (13.0-17.5) gm/dL Hct (39.0-53.0) % MCV (80.0-100.0) fL MCH (25.0-35.0) pg MCHC (31.0-37.0) g/dL RDW (11.5-15.5) % Plt Count (150-450) k/uL Neutrophils % % Lymphocytes % % Monocytes % % Eosinophils % % Basophils % % Neutrophils # (1.3-7.7) k/uL Lymphocytes # (1.0-4.8) k/uL Monocytes # (0-1.0) k/uL Eosinophils # (0-0.7) k/uL Basophils # (0-0.2) k/uL Macrocytosis PT 9.6 (9.0-12.0) sec INR 1.0 (<1.2) APTT 24.1 (22.0-30.0) sec Sodium (137-145) mmol/L Potassium (3.5-5.1) mmol/L Chloride (98-107) mmol/L Carbon Dioxide (22-30) mmol/L Anion Gap mmol/L BUN (9-20) mg/dL Creatinine (0.66-1.25) mg/dL Est GFR (MDRD) Af Amer (>60 ml/min/1.73 sqM) Est GFR (MDRD) Non-Af (>60 ml/min/1.73 sqM) Glucose (74-99) mg/dL Calcium (8.4-10.2) mg/dL Magnesium (1.6-2.3) mg/dL Total Bilirubin (0.2-1.3) mg/dL AST (17-59) U/L ALT (21-72) U/L Alkaline Phosphatase (38-126) U/L Total Creatine Kinase (55-170) U/L CK-MB (CK-2) (0.0-2.4) ng/mL CK-MB (CK-2) Rel Index Troponin I (0.000-0.034) ng/mL Total Protein (6.3-8.2) g/dL Albumin (3.5-5.0) g/dL Critical Care Time Total Critical Care Time: 30 Critical Care Time: (Continued to have a chest pain though he is very forthcoming about the pain considering his history of heart disease and pacemaker in place and multiple other comorbidities he was supposed to be an adequate is which unfortunately he has not been able to take his FOUR-month umbilical ahead and heparinize him and he be treated as acute coronary syndrome since he has a pain even while resting Disposition Clinical Impression: Head injury, Chest pain, Laceration of right elbow Disposition: ADMITTED IP TO THIS HOSP Condition: Good Referrals: Thad Caldwell MD [Primary Care Provider] - 1-2 days
--- NOTE | 2017-08-22 13:00 | CT ---
EXAMINATION TYPE: CT brain wo con DATE OF EXAM: 08/22/2017 COMPARISON: NONE HISTORY: Fall today with multiple abrasions CT DLP: 1144.7 mGycm Automated exposure control for dose reduction was used. FINDINGS: There are generalized changes of sulcal prominence and ventriculomegaly, compatible with atrophic bryan nge. There is diffuse periventricular white matter lucency, compatible with chronic white matter isch emic change. There is no acute focal lesion, mass effect or midline shift identified. I do not see ev idence of intracranial blood. There is a small amount of scalp swelling over the right frontal region. The bony calvarium is intact . There is mild mucoperiosteal thickening involving one of the posterior right ethmoidal air cells. T he mastoids are clear. IMPRESSION: NO ACUTE INTRACRANIAL ABNORMALITY.
[2017-08-22 13:23] LABS: Basophils # (A) 0.1 k/uL (0-0.2); Basophils % (A) 1 %; Eosinophils # (A) 0.1 k/uL (0-0.7); Eosinophils % (A) 2 %; HCT 47.7 % (39.0-53.0); HGB 15.8 gm/dL (13.0-17.5); Lymphocytes # (A) 1.4 k/uL (1.0-4.8); Lymphocytes % (A) 17 %; MCH 34.7 pg (25.0-35.0); MCHC 33.2 g/dL (31.0-37.0); MCV 104.6 fL (80.0-100.0); Macrocytosis Moderate; Mean Platelet Volume 7.5; Monocytes # (A) 0.4 k/uL (0-1.0); Monocytes % (A) 5 %; Neutrophils # (A) 6.4 k/uL (1.3-7.7); Neutrophils % (A) 75 %; Platelet Count 224 k/uL (150-450); RBC 4.56 m/uL (4.30-5.90); RDW 14.6 % (11.5-15.5); WBC 8.5 k/uL (3.8-10.6)
[2017-08-22 13:31] LABS: Partial Thromboplastin Time 24.1 sec (22.0-30.0); Prothrombin Time 9.6 sec (9.0-12.0)
[2017-08-22 13:40] LABS: ALT 19 U/L (21-72); AST 36 U/L (17-59); Albumin 4.2 g/dL (3.5-5.0); Alkaline Phosphatase 124 U/L (38-126); Anion Gap 20 mmol/L; Blood Urea Nitrogen 17 mg/dL (9-20); Calcium 9.7 mg/dL (8.4-10.2); Carbon Dioxide 19 mmol/L (22-30); Chloride 97 mmol/L (98-107); Glucose 69 mg/dL (74-99); Magnesium 1.9 mg/dL (1.6-2.3); Potassium 4.5 mmol/L (3.5-5.1); Sodium 136 mmol/L (137-145); Total Bilirubin 1.6 mg/dL (0.2-1.3); Total Protein 7.3 g/dL (6.3-8.2)
--- NOTE | 2017-08-22 13:45 | XR ---
EXAMINATION TYPE: XR elbow complete RT , 3 VIEWS DATE OF EXAM ORDERED: 08/22/2017 HISTORY: Pain. COMPARISON: Previous study dated 08/25/2010. FINDINGS: There is persistence of a malunion of the medial humeral condyle. There is chondrocalcinos is. This was present previously. No acute fracture, dislocation or joint effusion is seen. There is n ew calcification relating to the biceps tendon. This may be vascular in nature. No acute fracture or dislocation is seen. IMPRESSION: 1. NO ACUTE OSSEOUS LESION. 2. MALUNION OF THE MEDIAL FEMORAL CONDYLE. 3. CHONDROCALCINOSIS.
--- NOTE | 2017-08-22 13:46 | XR ---
EXAMINATION TYPE: XR chest 2V DATE OF EXAM: 08/22/2017 HISTORY: Chest Pain. REFERENCE: Previous study dated 08/30/2016. FINDINGS: There has been a midline sternotomy. There is a unipolar pacemaker in place on the left. There is elevation of the left hemidiaphragm. The heart is mildly enlarged. The lungs appear clear. P leural spaces are clear. IMPRESSION: CARDIOMEGALY.
[2017-08-22 13:55] LABS: Troponin I 0.029 ng/mL (0.000-0.034)
[2017-08-22 14:06] LABS: Creatine Kinase MB 3.2 ng/mL (0.0-2.4)
[2017-08-22] MEDS ORDERED: NITROGLYCERIN SL TABS 0.4 MG TAB SUBLINGUAL PRN (14:19)
[2017-08-22] MEDS ORDERED: HEPARIN SODIUM,PORCINE 5,000 UNIT/ML 1 ML VIAL IV ONE (14:19)
[2017-08-22] MEDS ORDERED: HEPARIN SOD,PORK IN 0.45% NACL 25,000 UNIT in 0.45% NACL 1 500ML.BAG IV SCH (14:30)
[2017-08-22] MEDS ORDERED: CARVEDILOL 3.125 MG TAB PO SCH (17:30)
[2017-08-22] MEDS: THIAMINE 100 MG TAB PO SCH (17:57)
[2017-08-22 21:09] LABS: Creatine Kinase MB 2.4 ng/mL (0.0-2.4)
[2017-08-22 21:12] LABS: Troponin I 0.039 ng/mL (0.000-0.034)
[2017-08-22] MEDS: FAMOTIDINE 20 MG TAB PO SCH (21:18)
[2017-08-23 02:48] LABS: Creatine Kinase MB 1.9 ng/mL (0.0-2.4)
[2017-08-23 02:49] LABS: Troponin I 0.044 ng/mL (0.000-0.034)
[2017-08-23 07:35] LABS: Cholesterol 88 mg/dL (<200); HDL Cholesterol 49 mg/dL (40-60); LDL Cholesterol,Calculated 25 mg/dL (0-99); Triglycerides 71 mg/dL (<150)
[2017-08-23] MEDS ORDERED: CARVEDILOL 6.25 MG TAB PO SCH (09:00)
[2017-08-23] MEDS ORDERED: FUROSEMIDE 40 MG TAB PO SCH (09:00)
[2017-08-23] MEDS ORDERED: CYANOCOBALAMIN 500 MCG TAB PO SCH (09:00)
[2017-08-23] MEDS ORDERED: ASPIRIN 325 MG TAB PO SCH (09:00)
[2017-08-23] MEDS ORDERED: ATORVASTATIN 40 MG TAB PO SCH (09:00)
[2017-08-23] MEDS ORDERED: SPIRONOLACTONE 25 MG TAB PO SCH (09:00)
[2017-08-23] MEDS ORDERED: POTASSIUM CHLORIDE ER 20 MEQ TAB.ER PO SCH (09:00)
--- NOTE | 2017-08-23 10:46 | CONS ---
CONSULTATION This is a 76-year-old gentleman who is very noncompliant. He has history of coronary artery disease with bypass surgery probably in the late 70s and again in year 1999. He also has history of alcoholism and smoking. He smokes at least 1-1/2 pack daily. He has been very noncompliant. He has ischemic cardiomyopathy with ejection fraction in the range of 20-25% and has notoriously been noncompliant for followup. His ICD was placed in 2014 and since then he has not had a followup. His last visit to the hospital was in August of 2016 and he has not come in for a device check or followup. Yesterday, he drank some bourbon. After drinking some bourbon he felt very tipsy and lightheaded. He tried to transfer from his wheelchair into the bed and then tripped and fell and had a scalp laceration and also hurt his elbow and came into the hospital. He has not had any chest pain. He denies any shortness of breath. His functional capacity is quite limited and he has a left above knee amputation for vascular insufficiency, details of which are not available. At the time of my evaluation, he is comfortable and I spent a lot of time explaining to him the importance of coming into the office and having a device checked at least once and after that make a 6 month visit. The patient additionally has chronic atrial fibrillation, has been seeing a visiting physician and has apixaban 2.5 mg b.i.d. PAST MEDICAL HISTORY: 1. CAD with bypass surgery in late 70s and in 1999. 2. Ischemic cardiomyopathy with a ejection fraction of less than 20% to 25% with ICD that has been placed in 2014. 3. Peripheral arterial disease with left above-knee amputation. 4. History of chronic atrial fibrillation. 5. Smoking and COPD. 6. Alcoholism. ALLERGIES: These include LEVAQUIN AND VIOXX. MEDICATIONS: At home include: Coreg 6.25 mg b.i.d., Lipitor 40 mg daily, aspirin 81 mg daily, apixaban 2.5 mg b.i.d., Lasix 40 mg daily, Aldactone 25 mg daily, potassium 20 mg daily, and vitamin B1 100 mg daily. EXAMINATION: Blood pressure is 144/70, pulse rate 60 per minute appears to be a paced beats, underlying rhythm is atrial fib. HEENT: Unremarkable. Fundus was not examined by me. NECK: Supple. There is JVD of 1 cm. No carotid bruit. Heart exam reveals S1, S2 with a short systolic murmur at the base and left sternal border. Lungs reveal diminished air entry. Abdomen is soft, nontender. Lower extremities reveal diminished pulses. There is a left above-knee amputation noted. There is no edema on the right side. Pulses are palpable but diminished. Central nervous system grossly within normal limits. His troponin profile suggests 0.03 and 0.04. This is a similar trend that was also seen about a year ago. IMPRESSION: 1. Trip and fall after drinking some bourbon with scalp laceration and elbow soft tissue injury. No bony injury. 2. Ischemic cardiomyopathy with ICD. 3. History of ischemic heart disease, prior bypass surgery. 4. Severe peripheral vascular disease with left above-knee amputation. 5. Chronic tobacco abuse. 6. History of chronic alcohol abuse. RECOMMENDATIONS: I am recommending that he should continue current medications. He can be discharged and I have requested him and explained to him the importance of following up with us so we can check his device in the office. The patient promises to follow up in 2 weeks. He can be discharged on current medical regimen without any intervention at this time. Echo from 2017 revealed ejection fraction of about 25% with a global decrease in contractility and elevated end-diastolic pressures with a normal RV size and function. Prognosis remains guarded for this patient. DEANNE / ATULN: [id number] /
--- NOTE | 2017-08-23 11:34 | P.HPIM ---
History of Present Illness H&P Date: 08/23/17 Chief Complaint: Fall at home This is 76 years old male with past medical history significant for coronary artery disease left below knee amputation presents to the hospital after sustaining fall at home. Patient is heavy smoker and heavy drinker stated that he was drinking bourbon and try to get up and the lost his balance and landed on the floor denied loss of consciousness or head injury patient had some pain to his left elbow and presented to the emergency department where they he was noted to have some laceration to his right elbow but in the emergency department patient stated that he had some chest pain in the morning and ER physician determent to admit patient to observation and start him on heparin drip given his cardiac history. Patient currently is denying chest pain, shortness breath, nausea, vomiting, abdominal pain, dizziness, lightheadedness or blurry vision. Patient is up in his bed tolerating diet in no acute distress. Patient stated he continues to smoke and drinks a that he's taking his medication but when asked about the name of this medication he was not able to memorize annual them Review of Systems All 14 systems reviewed and negative except as above Past Medical History Past Medical History: Atrial Fibrillation, Coronary Artery Disease (CAD), Heart Failure, COPD, Deep Vein Thrombosis (DVT), GERD/Reflux, Hyperlipidemia, Hypertension, Myocardial Infarction (non Q-wave), Pneumonia, Vascular Disorder Additional Past Medical History / Comment(s): Other HX: ischemic cardiomegaly with L atrial enlargement, CHF systolic dysfunction, NSTEMI (pt unaware of previous VT or A-Fib), PVD, PAD, hiatal hernia, R leg fx in past, internal hemorrhoids and diverticulosis, hernia rt inguinal area Last Myocardial Infarction Date:: unkn History of Any Multi-Drug Resistant Organisms: MRSA Date of last positivie culture/infection: 02/03/2015 MDRO Source:: Left Foot Past Surgical History: Coronary Bypass/CABG, Heart Catheterization, Hernia Repair, Pacemaker Additional Past Surgical History / Comment(s): CABG 1974, CABG 1999, AICD 2004 removed and replaced with pacemaker 04/05/2015 at [facility]. femoropopliteal graft Rt graft complicated by post op infection 2007, colonoscopy with polypectomy transverse colon, umbilical hernia repair. 2014 PICC Line-removed, left AKA, hemorrhoids, lt inguinal and umbilical hernia Past Anesthesia/Blood Transfusion Reactions: Motion Sickness Additional Past Anesthesia/Blood Transfusion Reaction / Comment(s): Pt has recieved blood without reaction. Type of Cardiac Device: Permanent Pacemaker Device Placement Date:: 04/05/2015 Past Psychological History: No Psychological Hx Reported Additional Psychological History / Comment(s): Pt currently lives alone. He states he is independent with his ADL's normally Smoking Status: Current every day smoker Past Alcohol Use History: Abuse Additional Past Alcohol Use History / Comment(s): Pt states he started smoking at age 11 yrs Past Drug Use History: None Reported - Past Family History Brother(s) Family Medical History: Cancer Additional Family Medical History / Comment(s): prostate Father Family Medical History: Myocardial Infarction ([place]) Additional Family Medical History / Comment(s): Father at age 48 of [place]. Mother Family Medical History: Cancer Additional Family Medical History / Comment(s): Mother at age 51 of some form of cancer. Medications and Allergies Home Medications Medication Instructions Recorded Confirmed Type Aspirin 81 mg PO DAILY chew 10/18/14 08/22/17 Rx Thiamine [Vitamin B-1] 100 mg PO BID@1200,1700 tab 05/28/15 08/22/17 Rx Apixaban [Eliquis] 2.5 mg PO BID #60 09/03/16 08/22/17 Rx Atorvastatin [Lipitor] 40 mg PO DAILY #30 tab 09/03/16 08/22/17 Rx Famotidine [Pepcid] 20 mg PO BID #60 tab 09/03/16 08/22/17 Rx Spironolactone [Aldactone] 25 mg PO DAILY #30 tab 09/03/16 08/22/17 Rx Cyanocobalamin (Vitamin B-12) 1,000 mcg PO DAILY 05/14/17 08/22/17 History [Vitamin B12] Furosemide [Lasix] 40 mg PO DAILY 05/14/17 08/22/17 History Potassium Chloride ER [K-Dur 20] 20 meq PO DAILY 05/14/17 08/22/17 History Carvedilol [Coreg] 6.25 mg PO BID 08/22/17 08/22/17 History Allergies Allergy/AdvReac Type Severity Reaction Status Date / Time levofloxacin [From Levaquin] Allergy "tendon Verified 08/22/17 20:54 pops"/RASH rofecoxib [From Vioxx] Allergy Rash/Hives Verified 08/22/17 20:54 Physical Exam Vitals: Vital Signs Temp Pulse Pulse Resp BP BP Pulse Ox 08/23/17 08:00 97.6 F 60 16 160/79 98 08/23/17 04:00 98.1 F 61 16 174/89 96 08/23/17 03:18 18 08/23/17 00:00 98.2 F 60 18 140/73 94 L 08/22/17 21:00 16 08/22/17 20:06 98.0 F 60 16 160/80 96 08/22/17 17:56 64 18 164/77 96 08/22/17 13:15 60 16 155/74 97 08/22/17 12:06 97.0 F L 75 16 161/88 95 Intake and Output 08/22/17 08/23/17 08/23/17 22:59 06:59 14:59 Intake Total 164.145 Balance 164.145 Intake: IV 75 Sodium Chloride 0.9% 1, 75 000 ml @ 75 mls/hr IV . [id number] STA Rx#:[id number] Intake, IV Titration 89.145 Amount Heparin Sod,Pork in 0.45% 89.145 NaCl 25,000 unit In 0.45 % NaCl 1 500ml.bag @ 12 UNITS/KG/HR 14.15 mls/hr IV .Q24H [facility] Rx#: [id number] Other: Voiding Method Toilet Toilet # Voids 2 # Bowel Movements 1 Gen.: in stated age, no acute distress Heart: Normal S1-S2 Lungs: Clear to auscultation bilaterally Abdomen: Soft, no tenderness, positive bowel sounds in all 4 quadrant no guarding or rebound Skin: No new rash Psych: Alert and oriented 3 Neuro: No focal deficit Lower extremity positive for left below-knee imitation Results CBC & Chem 7: 08/22/17 13:15 08/22/17 13:15 Labs: Abnormal Lab Results - Last 24 Hours (Table) 08/22/17 08/22/17 08/22/17 Range/Units 13:15 13:15 13:15 MCV 104.6 H (80.0-100.0) fL APTT (22.0-30.0) sec Sodium 136 L (137-145) mmol/L Chloride 97 L (98-107) mmol/L Carbon Dioxide 19 L (22-30) mmol/L Glucose 69 L (74-99) mg/dL Total Bilirubin 1.6 H (0.2-1.3) mg/dL ALT 19 L (21-72) U/L CK-MB (CK-2) 3.2 H* (0.0-2.4) ng/mL Troponin I (0.000-0.034) ng/mL 08/22/17 08/22/17 08/23/17 Range/Units 20:03 20:03 01:45 MCV (80.0-100.0) fL APTT 50.5 H (22.0-30.0) sec Sodium (137-145) mmol/L Chloride (98-107) mmol/L Carbon Dioxide (22-30) mmol/L Glucose (74-99) mg/dL Total Bilirubin (0.2-1.3) mg/dL ALT (21-72) U/L CK-MB (CK-2) (0.0-2.4) ng/mL Troponin I 0.039 H* 0.044 H* (0.000-0.034) ng/mL 08/23/17 Range/Units 06:38 MCV (80.0-100.0) fL APTT 34.9 H (22.0-30.0) sec Sodium (137-145) mmol/L Chloride (98-107) mmol/L Carbon Dioxide (22-30) mmol/L Glucose (74-99) mg/dL Total Bilirubin (0.2-1.3) mg/dL ALT (21-72) U/L CK-MB (CK-2) (0.0-2.4) ng/mL Troponin I (0.000-0.034) ng/mL Thrombosis Risk Factor Assmnt - Choose All That Apply Each Factor Represents 1 point: Abnormal pulmonary function (COPD), Hx of IBD, Swollen legs (current), Varicose veins Other Risk Factors: Yes Each Risk Factor Represents 3 Points: Age 75 years or older Other congenital or acquired thrombophilia - If yes, enter type in comment: No Thrombosis Risk Factor Assessment Total Risk Factor Score: 7 Thrombosis Risk Factor Assessment Level: High Risk Assessment and Plan Assessment: 1. Alcohol intoxication with sustaining fall at home and right elbow laceration. No further bleeding patient seems to be hemodynamic a stable will have patient's follow-up with his primary care physician in one to 2 days after discharge he had 2. Alcoholism and ongoing tobacco abuse. Patient counseled regarding smoking cessation and moderate user 5 call. 3. Status post left below-knee imitation. We'll continue supportive care. 4. Elevated troponin. Likely related to demand mismatch ischemia. Plan discussed with the infantry assaultman who would like the patient's to continue current current cardioprotective medication follow-up with his infantry assaultman on outpatient basis. 5. Chronic systolic congestive heart failure with ejection fraction of 20%. Patient is noncompliant with his medication neither with his doctors follow-up. Patient informed about the need to take his medication and follow-up closely with cardiology outpatient. 6. Atrial fibrillation. Heart rate is controlled. Patient continued to be on the pixie been understands risk of from bleeding specially if sustaining falls patient follow-up with his infantry assaultman to make that decision about continuation of anticoagulation on outpatient basis especially in his history of chronic alcoholism. 7. Noncontrast with medication and doctors follow-up. 8. Coronary artery disease status post open heart surgery back in 1999. Continue cardiac medication as above. 9. Peripheral arterial disease. Discharge planning today to follow up outpatient with primary care physician and infantry assaultman on outpatient basis discussed with infantry assaultman
[2017-08-23] MEDS: FAMOTIDINE 20 MG TAB PO SCH (11:43)
[2017-08-23] MEDS: THIAMINE 100 MG TAB PO SCH (11:44)
[2017-08-23 12:56] VITALS: BP 152/77; PULSE 61; RESP 18; TEMP 97.5
[2017-08-23] MEDS ORDERED: HEPARIN SODIUM,PORCINE 5,000 UNIT/ML 1 ML VIAL SQ SCH (21:00)
== END 2017-08-23 14:44 | disposition home or self-care (01) ==
LOC: EC 12:00 → 6SEL 14:22 → 3OBS 18:50
PROVIDERS: ADMIT Internal Medicine Geriatric Medicine; ATTEND Internal Medicine Geriatric Medicine
DX: F10.229 Alcohol dependence with intoxication, unspecified (principal); S51.011A Laceration without foreign body of right elbow, initial encounter; W05.0XXA Fall from non-moving wheelchair, initial encounter; Y92.009 Unspecified place in unspecified non-institutional (private) residence as the place of occurrence of the external cause; F17.210 Nicotine dependence, cigarettes, uncomplicated; R74.8 Abnormal levels of other serum enzymes; I11.0 Hypertensive heart disease with heart failure; I50.22 Chronic systolic (congestive) heart failure; Z91.14 Patient's other noncompliance with medication regimen; Z91.19 Patient's noncompliance with other medical treatment and regimen; I48.2 Chronic atrial fibrillation; S01.01XA Laceration without foreign body of scalp, initial encounter; Z89.612 Acquired absence of left leg above knee; R07.9 Chest pain, unspecified; I25.10 Atherosclerotic heart disease of native coronary artery without angina pectoris; Z95.1 Presence of aortocoronary bypass graft; I73.9 Peripheral vascular disease, unspecified; J44.9 Chronic obstructive pulmonary disease, unspecified; I83.90 Asymptomatic varicose veins of unspecified lower extremity; K21.9 Gastro-esophageal reflux disease without esophagitis; E78.5 Hyperlipidemia, unspecified; I25.5 Ischemic cardiomyopathy; I25.2 Old myocardial infarction; Z88.8 Allergy status to other drugs, medicaments and biological substances; Z88.1 Allergy status to other antibiotic agents; Z79.899 Other long term (current) drug therapy; Z79.82 Long term (current) use of aspirin; Z79.01 Long term (current) use of anticoagulants; Z86.718 Personal history of other venous thrombosis and embolism; Z86.14 Personal history of Methicillin resistant Staphylococcus aureus infection; Z95.0 Presence of cardiac pacemaker; Z87.01 Personal history of pneumonia (recurrent); Z95.828 Presence of other vascular implants and grafts; Z80.42 Family history of malignant neoplasm of prostate; Z80.9 Family history of malignant neoplasm, unspecified
CPT/HCPCS: 99291; 96361 ×2; 96376 ×2; 96365 ×2; 96366 ×7; 36415; 93005; 83880; 80061; 80053; 82550 ×2; 82553 ×2; 83735; 84484 ×2; 85025; 85610; 85730 ×2; 73080; 71046; 70450; G0378 ×3; J1644 ×2

== ENCOUNTER 2018-01-11 19:52 | Inpatient (IN) | payer MEDICARE ==
[2018-01-11] MEDS ORDERED: SODIUM CHLORIDE 0.9% 1,000 ML IV STA (20:43)
--- NOTE | 2018-01-11 20:47 | ED ---
General Adult HPI - General Chief complaint: Weakness Stated complaint: Weakness Time Seen by Provider: 01/11/18 19:57 Source: patient, EMS, RN notes reviewed, old records reviewed Mode of arrival: EMS Limitations: no limitations - History of Present Illness Initial comments: 77-year-old male presents for evaluation of generalized weakness and fatigue. Patient has multiple medical problems including CAD, COPD, peripheral vascular disease. He has a left lower extremity [id number] amputation secondary to vascular disease. He's been unable to transfer at home secondary to weakness. He's had multiple falls. He has not been eating because he cannot get out of his wheelchair in order to make himself. He currently lives alone. Nursing staff recommended the patient presented to the hospital for evaluation. He does have COPD and has increased dyspnea. No worsening cough. No fever or chills. No chest pain. No abdominal pain. No nausea vomiting. - Related Data Home Medications Medication Instructions Recorded Confirmed Cyanocobalamin (Vitamin B-12) 1,000 mcg PO DAILY 05/14/17 08/22/17 [Vitamin B12] Furosemide [Lasix] 40 mg PO DAILY 05/14/17 08/22/17 Potassium Chloride ER [K-Dur 20] 20 meq PO DAILY 05/14/17 08/22/17 Carvedilol [Coreg] 6.25 mg PO BID 08/22/17 08/22/17 Previous Rx's Medication Instructions Recorded Aspirin 81 mg PO DAILY chew 10/18/14 Thiamine [Vitamin B-1] 100 mg PO BID@1200,1700 tab 05/28/15 Apixaban [Eliquis] 2.5 mg PO BID #60 09/03/16 Atorvastatin [Lipitor] 40 mg PO DAILY #30 tab 09/03/16 Famotidine [Pepcid] 20 mg PO BID #60 tab 09/03/16 Spironolactone [Aldactone] 25 mg PO DAILY #30 tab 09/03/16 Allergies Allergy/AdvReac Type Severity Reaction Status Date / Time levofloxacin [From Levaquin] Allergy "tendon Verified 01/11/18 20:02 pops"/RASH rofecoxib [From Vioxx] Allergy Rash/Hives Verified 01/11/18 20:02 Review of Systems ROS Statement: Those systems with pertinent positive or pertinent negative responses have been documented in the HPI. ROS Other: All systems not noted in ROS Statement are negative. Past Medical History Past Medical History: Atrial Fibrillation, Coronary Artery Disease (CAD), Heart Failure, COPD, Deep Vein Thrombosis (DVT), GERD/Reflux, Hyperlipidemia, Hypertension, Myocardial Infarction (non Q-wave), Pneumonia, Vascular Disorder Additional Past Medical History / Comment(s): Other HX: ischemic cardiomegaly with L atrial enlargement, CHF systolic dysfunction, NSTEMI (pt unaware of previous PA or A-Fib), PVD, PAD, hiatal hernia, R leg fx in past, internal hemorrhoids and diverticulosis, hernia rt inguinal area Last Myocardial Infarction Date:: unkn History of Any Multi-Drug Resistant Organisms: MRSA Date of last positivie culture/infection: 02/03/2015 MDRO Source:: Left Foot Past Surgical History: Coronary Bypass/CABG, Heart Catheterization, Hernia Repair, Pacemaker Additional Past Surgical History / Comment(s): CABG 1974, CABG 1999, AICD 2004 removed and replaced with pacemaker 04/05/2015 at [facility]. femoropopliteal graft Rt graft complicated by post op infection 2007, colonoscopy with polypectomy transverse colon, umbilical hernia repair. 2014 PICC Line-removed, left AKA, hemorrhoids, lt inguinal and umbilical hernia Past Anesthesia/Blood Transfusion Reactions: Motion Sickness Additional Past Anesthesia/Blood Transfusion Reaction / Comment(s): Pt has recieved blood without reaction. Type of Cardiac Device: Permanent Pacemaker Device Placement Date:: 04/05/2015 Past Psychological History: No Psychological Hx Reported Smoking Status: Current every day smoker Past Alcohol Use History: Abuse Past Drug Use History: None Reported - Past Family History Brother(s) Family Medical History: Cancer Additional Family Medical History / Comment(s): prostate Father Family Medical History: Myocardial Infarction ([place]) Additional Family Medical History / Comment(s): Father at age 48 of [place]. Mother Family Medical History: Cancer Additional Family Medical History / Comment(s): Mother at age 51 of some form of cancer. General Exam Limitations: no limitations General appearance: alert, in no apparent distress Head exam: Present: atraumatic, normocephalic Eye exam: Present: normal appearance, PERRL ENT exam: Present: mucous membranes dry Neck exam: Present: normal inspection. Absent: tenderness, meningismus Respiratory exam: Present: wheezes, decreased breath sounds. Absent: respiratory distress Cardiovascular Exam: Present: regular rate, normal rhythm GI/Abdominal exam: Present: soft. Absent: distended, tenderness Extremities exam: Present: other (Left AKA) Neurological exam: Present: alert, oriented X3, CN II-XII intact. Absent: motor sensory deficit Psychiatric exam: Present: normal affect, normal mood Skin exam: Present: warm, dry, intact. Absent: cyanosis, diaphoretic Course Vital Signs 01/11/18 01/11/18 01/11/18 19:58 20:37 21:02 Temperature 97.3 F L Pulse Rate 61 60 Respiratory 20 22 18 Rate Blood Pressure 103/63 131/73 O2 Sat by Pulse 97 96 Oximetry 01/11/18 23:00 Temperature Pulse Rate 60 Respiratory 18 Rate Blood Pressure 114/68 O2 Sat by Pulse 100 Oximetry EKG Findings - EKG Comments: EKG Findings:: EKG: Ventricular paced rhythm, rate of 62, QRS duration 194, QTC 552 Medical Decision Making - Medical Decision Making 77-year-old male presenting with generalized weakness, patient has COPD, he has diffuse wheezing and decreased air entry bilaterally. Appears very cachectic. Laboratory studies reveal normal white blood cell count, stable hemoglobin, mild hyponatremia. Urinalysis is positive for large amount of white cells, and 149 rbc's. There is many bacteria. Urine culture is pending. Patient started on ceftriaxone empirically. Symptoms may be related to urinary tract infection. Patient has severe debility and failure to thrive. He is unable to to transfer. Patient will be admitted for urinary tract infection, generalized weakness, COPD exacerbation with hypoxia, and failure to thrive. - Lab Data Result diagrams: 01/11/18 20:12 01/11/18 20:12 Lab Results 01/11/18 01/11/18 01/11/18 Range/Units 20:12 20:12 20:12 WBC 6.8 (3.8-10.6) k/uL RBC 4.05 L (4.30-5.90) m/uL Hgb 13.5 (13.0-17.5) gm/dL Hct 40.1 (39.0-53.0) % MCV 99.1 (80.0-100.0) fL MCH 33.2 (25.0-35.0) pg MCHC 33.5 (31.0-37.0) g/dL RDW 14.2 (11.5-15.5) % Plt Count 458 H (150-450) k/uL Neutrophils % 71 % Lymphocytes % 22 % Monocytes % 4 % Eosinophils % 0 % Basophils % 0 % Neutrophils # 4.9 (1.3-7.7) k/uL Lymphocytes # 1.5 (1.0-4.8) k/uL Monocytes # 0.3 (0-1.0) k/uL Eosinophils # 0.0 (0-0.7) k/uL Basophils # 0.0 (0-0.2) k/uL PT 10.2 (9.0-12.0) sec INR 1.0 (<1.2) APTT 28.8 (22.0-30.0) sec Sodium 132 L (137-145) mmol/L Potassium 3.9 (3.5-5.1) mmol/L Chloride 96 L (98-107) mmol/L Carbon Dioxide 22 (22-30) mmol/L Anion Gap 14 mmol/L BUN 22 H (9-20) mg/dL Creatinine 0.70 (0.66-1.25) mg/dL Est GFR (CKD-EPI)AfAm >90 (>60 ml/min/1.73 sqM) Est GFR (CKD-EPI)NonAf >90 (>60 ml/min/1.73 sqM) Glucose 81 (74-99) mg/dL Calcium 8.5 (8.4-10.2) mg/dL Total Bilirubin 0.9 (0.2-1.3) mg/dL AST 27 (17-59) U/L ALT 25 (21-72) U/L Alkaline Phosphatase 109 (38-126) U/L Total Protein 5.6 L (6.3-8.2) g/dL Albumin 2.9 L (3.5-5.0) g/dL Urine Color Urine Appearance (Clear) Urine pH (5.0-8.0) Ur Specific [place] (1.001-1.035) Urine Protein (Negative) Urine Glucose (UA) (Negative) Urine Ketones (Negative) Urine Blood (Negative) Urine Nitrite (Negative) Urine Bilirubin (Negative) Urine Urobilinogen (<2.0) mg/dL Ur Leukocyte Esterase (Negative) Urine RBC (0-5) /hpf Urine WBC (0-5) /hpf Urine WBC Clumps (None) /hpf Urine Bacteria (None) /hpf Urine Mucus (None) /hpf 01/11/18 Range/Units 22:21 WBC (3.8-10.6) k/uL RBC (4.30-5.90) m/uL Hgb (13.0-17.5) gm/dL Hct (39.0-53.0) % MCV (80.0-100.0) fL MCH (25.0-35.0) pg MCHC (31.0-37.0) g/dL RDW (11.5-15.5) % Plt Count (150-450) k/uL Neutrophils % % Lymphocytes % % Monocytes % % Eosinophils % % Basophils % % Neutrophils # (1.3-7.7) k/uL Lymphocytes # (1.0-4.8) k/uL Monocytes # (0-1.0) k/uL Eosinophils # (0-0.7) k/uL Basophils # (0-0.2) k/uL PT (9.0-12.0) sec INR (<1.2) APTT (22.0-30.0) sec Sodium (137-145) mmol/L Potassium (3.5-5.1) mmol/L Chloride (98-107) mmol/L Carbon Dioxide (22-30) mmol/L Anion Gap mmol/L BUN (9-20) mg/dL Creatinine (0.66-1.25) mg/dL Est GFR (CKD-EPI)AfAm (>60 ml/min/1.73 sqM) Est GFR (CKD-EPI)NonAf (>60 ml/min/1.73 sqM) Glucose (74-99) mg/dL Calcium (8.4-10.2) mg/dL Total Bilirubin (0.2-1.3) mg/dL AST (17-59) U/L ALT (21-72) U/L Alkaline Phosphatase (38-126) U/L Total Protein (6.3-8.2) g/dL Albumin (3.5-5.0) g/dL Urine Color Yellow Urine Appearance Cloudy (Clear) Urine pH 5.5 (5.0-8.0) Ur Specific [place] 1.012 (1.001-1.035) Urine Protein 1+ H (Negative) Urine Glucose (UA) Negative (Negative) Urine Ketones Trace H (Negative) Urine Blood Large H (Negative) Urine Nitrite Negative (Negative) Urine Bilirubin Negative (Negative) Urine Urobilinogen 6.0 (<2.0) mg/dL Ur Leukocyte Esterase Large H (Negative) Urine RBC 149 H (0-5) /hpf Urine WBC >182 H (0-5) /hpf Urine WBC Clumps Many H (None) /hpf Urine Bacteria Many H (None) /hpf Urine Mucus Rare H (None) /hpf Disposition Clinical Impression: COPD (chronic obstructive pulmonary disease), UTI (urinary tract infection), Failure to thrive Disposition: ADMITTED IP TO THIS [facility] Condition: Stable Is patient prescribed a controlled substance at d/c from ED?: No Referrals: Nonstaff,Physician [Primary Care Provider] - 1-2 days Decision to Admit Reason: Admit from EC Decision Date: 01/11/18 Decision Time: 23:59
[2018-01-11 21:04] LABS: Basophils % (A) 0 %; Eosinophils % (A) 0 %; HCT 40.1 % (39.0-53.0); HGB 13.5 gm/dL (13.0-17.5); Lymphocytes # (A) 1.5 k/uL (1.0-4.8); Lymphocytes % (A) 22 %; MCH 33.2 pg (25.0-35.0); MCHC 33.5 g/dL (31.0-37.0); MCV 99.1 fL (80.0-100.0); Mean Platelet Volume 7.8; Monocytes # (A) 0.3 k/uL (0-1.0); Monocytes % (A) 4 %; Neutrophils # (A) 4.9 k/uL (1.3-7.7); Neutrophils % (A) 71 %; Platelet Count 458 k/uL (150-450); RBC 4.05 m/uL (4.30-5.90); RDW 14.2 % (11.5-15.5); WBC 6.8 k/uL (3.8-10.6)
[2018-01-11 21:12] LABS: ALT 25 U/L (21-72); AST 27 U/L (17-59); Albumin 2.9 g/dL (3.5-5.0); Alkaline Phosphatase 109 U/L (38-126); Anion Gap 14 mmol/L; Blood Urea Nitrogen 22 mg/dL (9-20); Calcium 8.5 mg/dL (8.4-10.2); Carbon Dioxide 22 mmol/L (22-30); Chloride 96 mmol/L (98-107); Glucose 81 mg/dL (74-99); Potassium 3.9 mmol/L (3.5-5.1); Sodium 132 mmol/L (137-145); Total Bilirubin 0.9 mg/dL (0.2-1.3); Total Protein 5.6 g/dL (6.3-8.2)
[2018-01-11 21:15] LABS: Partial Thromboplastin Time 28.8 sec (22.0-30.0); Prothrombin Time 10.2 sec (9.0-12.0)
--- NOTE | 2018-01-11 21:52 | XR ---
EXAMINATION TYPE: XR chest 2V DATE OF EXAM: 01/11/2018 COMPARISON: 08/22/2017 HISTORY: Weakness TECHNIQUE: Frontal and lateral views of the chest are obtained. FINDINGS: Heart is enlarged. There is some elevation of the left diaphragm. There is no heart failur e. There is left axillary pacemaker with the lead tip in the right ventricle. There are sternal wires . Lungs appear clear of consolidation. There is some pleural reaction at the left posterior lung base . IMPRESSION: Pleural diaphragmatic reaction at the left lung base is slightly worse than old exam. Ca rdiomegaly. No heart failure.
[2018-01-11] MEDS ORDERED: HYDROcodone/APAP 5-325MG 1 EACH TAB PO STA (22:13)
[2018-01-11 22:37] LABS: Appearance,Urine Cloudy (Clear); Bacteria,Urine Many /hpf; Bilirubin,Urine Negative (Negative); Blood,Urine Large (Negative); Color,Urine Yellow; Glucose,Urine (UA) Negative (Negative); Ketones,Urine Trace (Negative); Leukocyte Esterase,Urine Large (Negative); Mucus,Urine Rare /hpf; Nitrite,Urine Negative (Negative); PH, Urine 5.5 (5.0-8.0); Protein,Urine 1+ (Negative); RBC,Urine 149 /hpf (0-5); Specific Gravity,Urine 1.012 (1.001-1.035); WBC,Urine >182 /hpf (0-5)
[2018-01-11] MEDS ORDERED: cefTRIAXone IN SWFI 1,000 MG/10 ML SYRINGE IVP STA (22:42)
[2018-01-11] MEDS ORDERED: NALOXONE 0.4 MG/ML 1 ML VIAL IV PRN (23:52)
[2018-01-12] MEDS: ALBUTEROL NEBULIZED 2.5 MG/3 ML INHALATION SCH ×4 (07:28→18:35)
[2018-01-12] MEDS: APIXABAN 2.5 MG TABLET PO SCH ×2 (08:21→20:16)
[2018-01-12] MEDS: THIAMINE 100 MG TAB PO SCH ×2 (08:21→15:33)
[2018-01-12] MEDS: CARVEDILOL 6.25 MG TAB PO SCH ×2 (08:21→20:16)
[2018-01-12] MEDS: ATORVASTATIN 40 MG TAB PO SCH (08:21)
[2018-01-12] MEDS: predniSONE 20 MG TAB PO SCH (08:21)
[2018-01-12] MEDS: ASPIRIN 81 MG PO SCH (08:21)
[2018-01-12] MEDS: cefTRIAXone IN SWFI 1,000 MG/10 ML SYRINGE IVP SCH (08:22)
[2018-01-12] MEDS: HYDROcodone/APAP 5-325MG 1 EACH TAB PO PRN ×2 (08:27→21:48)
[2018-01-12] MEDS: FUROSEMIDE 10 MG/ML 4 ML VIAL IV SCH (13:52)
[2018-01-12] MEDS: POTASSIUM CHLORIDE ER 20 MEQ TAB.ER PO SCH (21:47)
[2018-01-12] MEDS: FAMOTIDINE 20 MG TAB PO SCH (21:47)
[2018-01-13] MEDS ORDERED: LORazepam 2 MG/ML INJ IV PRN ×2 (05:36)
[2018-01-13] MEDS: ALBUTEROL NEBULIZED 2.5 MG/3 ML INHALATION SCH ×4 (07:19→19:38)
[2018-01-13 08:41] LABS: Calcium 8.5 mg/dL (8.4-10.2); Potassium 4.3 mmol/L (3.5-5.1)
[2018-01-13] MEDS ORDERED: NON-FORMULARY DRUG (Aspirin Ec 81 MG) PO SCH (09:00)
[2018-01-13] MEDS: predniSONE 20 MG TAB PO SCH (10:31)
[2018-01-13] MEDS: ATORVASTATIN 40 MG TAB PO SCH (10:32)
[2018-01-13] MEDS: ASPIRIN 81 MG PO SCH (10:32)
[2018-01-13] MEDS: CARVEDILOL 6.25 MG TAB PO SCH ×2 (10:32→20:02)
[2018-01-13] MEDS: FAMOTIDINE 20 MG TAB PO SCH (10:32)
[2018-01-13] MEDS: cefTRIAXone IN SWFI 1,000 MG/10 ML SYRINGE IVP SCH (10:32)
[2018-01-13] MEDS: THIAMINE 100 MG TAB PO SCH ×2 (10:32→18:25)
[2018-01-13] MEDS: APIXABAN 2.5 MG TABLET PO SCH ×2 (10:33→20:02)
[2018-01-13] MEDS: SPIRONOLACTONE 25 MG TAB PO SCH (10:33)
[2018-01-13] MEDS: FUROSEMIDE 10 MG/ML 4 ML VIAL IV SCH (10:33)
[2018-01-13] MEDS: POTASSIUM CHLORIDE ER 20 MEQ TAB.ER PO SCH (13:23)
[2018-01-13] MEDS ORDERED: LACTULOSE 20 GM/30 ML CUP PO ONE (21:27)
[2018-01-13] MEDS: LACTATED RINGERS 1,000 ML IV SCH (22:22)
[2018-01-13] MEDS: PSYLLIUM HUSK 100% 6 GM PACKET PO SCH (22:23)
[2018-01-13] MEDS: NICOTINE 21MG/24HR PATCH TRANSDERM SCH (22:23)
--- NOTE | 2018-01-13 22:26 | HP ---
HISTORY AND PHYSICAL DATE OF SERVICE: 01/13/2018 PRESENTING COMPLAINT: Weak and tired. HISTORY OF PRESENTING COMPLAINT: This patient was initially admitted to Dr. Caldwell's service and was switched over to my service yesterday because patient follows with [facility]. Patient's chronic stable medical conditions include coronary artery disease, COPD, GERD, hypertension, hyperlipidemia, ischemic cardiomyopathy, peripheral artery disease, diverticulosis, right inguinal hernia. Patient lives by himself, normally uses a wheelchair to get about. Patient's appetite is not good. He feels weak, tired and rundown. Patient has been losing weight. The patient does smoke about a pack a day and also has 3 bourbon drinks a day. Patient was found to have a significant degree of UTI and was started off on IV ceftriaxone in the ER. Patient states he does not have much of an appetite. REVIEW OF SYSTEMS: CONSTITUTIONAL: Loss of appetite. Weight loss. Weak, tired. HEENT: Decreased hearing. RESPIRATORY: Baseline short of breath. CARDIOVASCULAR: None. GASTROINTESTINAL: Constipation. Has a BM only occasionally. Does not remember when is the last time he went. No nausea or vomiting. GENITOURINARY: Some urinary frequency. DERMATOLOGICAL: None. HEMATOLOGICAL: None. LYMPHATICS: None. PSYCHIATRY: A bit forgetful. NEUROLOGICAL: wasting of muscles. MUSCULOSKELETAL: Left below-knee amputation. PAST MEDICAL HISTORY: 1. Atrial fibrillation. 2. Coronary artery disease. 3. Heart failure. 4. COPD. 5. DVT. 6. GERD. 7. Hypertension. 8. Hyperlipidemia. 9. Ischemic cardiomyopathy. 10.CHF. 11.Peripheral artery disease. 12.Right hiatal hernia. 13.Internal hemorrhoids. 14.Diverticulosis. PAST SURGICAL HISTORY: 1. Coronary artery bypass. 2. Pacemaker. 3. Bypass in 1974 and 1999. 4. AICD in 2004, removed and replaced. 5. Bilateral femoropopliteal graft. Right graft complicated by postoperative infection. 6. Umbilical hernia repair. 7. Left above-knee amputation. 8. Hemorrhoids. 9. Left inguinal and umbilical hernia. SOCIAL HISTORY: Lives alone. Smokes about a pack a day; has been smoking close to about 65 years. Drinks 3 bourbons a night. FAMILY HISTORY: Father at age of 40 from [place]. HOME MEDICATIONS: 1. Aldactone 25 mg a day. 2. Potassium 20 mEq a day. 3. Lasix 40 mg a day. 4. Pepcid 20 mg b.i.d. 5. Coreg 6.25 b.i.d. 6. Lipitor 40 mg p.o. daily. 7. Aspirin 81 mg p.o. daily. ALLERGIES: Levaquin and rofecoxib. PHYSICAL EXAMINATION: VITAL SIGNS ON PRESENTATION: Temperature 97.3, pulse 61, respiration 20, blood pressure 103/63, pulse ox 97% on room air. GENERAL APPEARANCE: Very thin build. BMI 14.9. Lying in bed, tired-appearing. EYES: Pupils equal. Conjunctivae pale. HEENT: External appearance of nose and ears normal. Oral cavity dry. NECK: JVD not raised. Mass not palpable. RESPIRATORY: Effort increased. LUNGS: Poor air entry. Mild wheezing. CARDIOVASCULAR: First and second sounds normal. No edema. ABDOMEN: Soft, nontender. Liver and spleen not palpable. Scaphoid. LYMPHATIC: No lymph node palpable in neck or axillae. PSYCHIATRY: Alert and oriented x3. Mood and affect normal-appearing. MUSCULOSKELETAL: Diffuse wasting of muscles and bony prominences are prominent. PSYCHIATRY: Alert and oriented x3. Mood and affect normal. NEUROLOGICAL: Pupils equal.. Cranial nerves grossly intact. Left above-knee amputation. INVESTIGATIONS: White count 6.8, hemoglobin 13.5. Potassium 3.9. BUN 29, creatinine 0.96, albumin 2.9. UA positive for leukocyte esterase, WBC clumps. Urine micro showing gram-negative bacilli. ASSESSMENT: 1. Acute complicated urinary tract infection from cystitis. 2. Severe medical debility. Patient is not able to do much on his own. 3. Chronic left above-knee amputation. 4. History of atrial fibrillation, currently with a pacemaker in place. Chest x-ray shows severe kyphosis, prominent pulmonary artery. No obvious infiltrate. 5. Severe protein-calorie malnutrition with a body mass index of only 14.9. 6. Chronic nicotine dependence. Patient is a cigarette smoker. PLAN: Patient is on IV ceftriaxone. Home medications are resumed. funeral workers, case planner and PT/OT have been consulted. I will also get a dietitian consult. Will add a nicotine patch. Will add Ensure 1 can p.o. t.i.d. Overall prognosis is guarded. The patient will need ECF placement. MMODL / IJN: [id number] /
[2018-01-14 06:39] VITALS: TEMP 96.7
[2018-01-14] MEDS: ALBUTEROL NEBULIZED 2.5 MG/3 ML INHALATION SCH ×3 (07:14→15:23)
[2018-01-14] MEDS: LACTATED RINGERS 1,000 ML IV SCH ×2 (09:00→16:01)
[2018-01-14] MEDS: cefTRIAXone IN SWFI 1,000 MG/10 ML SYRINGE IVP SCH (09:00)
[2018-01-14] MEDS ORDERED: FAMOTIDINE 20 MG TAB PO SCH (09:00)
[2018-01-14] MEDS: CARVEDILOL 6.25 MG TAB PO SCH (09:01)
[2018-01-14] MEDS: ATORVASTATIN 40 MG TAB PO SCH (09:01)
[2018-01-14] MEDS: predniSONE 20 MG TAB PO SCH (09:02)
[2018-01-14] MEDS: SPIRONOLACTONE 25 MG TAB PO SCH (09:02)
[2018-01-14] MEDS: THIAMINE 100 MG TAB PO SCH ×2 (09:02→16:00)
[2018-01-14] MEDS: APIXABAN 2.5 MG TABLET PO SCH (09:02)
[2018-01-14] MEDS: NICOTINE 21MG/24HR PATCH TRANSDERM SCH (09:02)
[2018-01-14] MEDS: ASPIRIN 81 MG PO SCH (09:02)
[2018-01-14] MEDS: FUROSEMIDE 10 MG/ML 4 ML VIAL IV SCH (09:02)
[2018-01-14] MEDS: POTASSIUM CHLORIDE ER 20 MEQ TAB.ER PO SCH (09:02)
[2018-01-14] MEDS: PSYLLIUM HUSK 100% 6 GM PACKET PO SCH (09:06)
[2018-01-14 09:15] LABS: Anion Gap 10 mmol/L; Blood Urea Nitrogen 27 mg/dL (9-20); Calcium 8.5 mg/dL (8.4-10.2); Carbon Dioxide 25 mmol/L (22-30); Chloride 100 mmol/L (98-107); Glucose 94 mg/dL (74-99); Potassium 3.9 mmol/L (3.5-5.1); Sodium 135 mmol/L (137-145)
[2018-01-14 14:22] VITALS: BMI 16.0
[2018-01-14 14:59] VITALS: BP 103/60; PULSE 62; RESP 16
--- NOTE | 2018-01-14 16:15 | DS ---
DISCHARGE SUMMARY DATE OF ADMISSION: 01/11/2018 DATE OF DISCHARGE: 01/14/2018 FINAL DIAGNOSES: 1. Acute complicated urinary tract infection from cystitis with cultures positive for Escherichia coli. 2. Severe medical debility. Patient is not able to do much on his own. 3. Left [id number] amputation, chronic. 4. History of atrial fibrillation. Patient is on a pacemaker and Eliquis. 5. Severe kyphosis. 6. Severe protein-calorie malnutrition with a body mass index of 14.9 from poor oral intake. 7. Chronic nicotine dependence. Patient is a cigarette smoker. HOSPITAL COURSE: This patient presented weak and tired, found to have a severe UTI. Cultures were positive for E coli. Patient does smoke and drinks some alcohol. Does not eat much. BMI was found to be rather low. Patient was started on food supplementation. Doing a bit better today. Patient has been accepted to rehab. The patient has got decreased muscle mass. On examination, lungs reveal decreased breath sounds. Decreased muscle mass. PSYCHIATRY: Alert and oriented x3. DISCHARGE MEDICATIONS: 1. Lipitor 40 mg a day. 2. Pepcid 20 mg b.i.d. 3. Aldactone 25 mg a day. 4. Coreg 6.25 p.o. b.i.d. 5. Aspirin 81 mg a day. 6. Eliquis 2.5 p.o. b.i.d. 7. Keflex 500 mg q.6; 36 tablets. 8. DuoNeb t.i.d. 9. Nicotine patch 21 mg. 10.Metamucil 6 grams p.o. daily. 11.Thiamine 100 mg p.o. b.i.d. 12.Prednisone taper. DISPOSITION: [facility]. Follow up with Dr. Urias at the [facility]. Follow up with [facility] after discharge from there. MMODL / IJN: [id number] /
[2018-01-14] MEDS: HYDROcodone/APAP 5-325MG 1 EACH TAB PO PRN (16:16)
== END 2018-01-14 17:15 | DRG 689 ==
LOC: EC 19:52 → 4MS4W 23:59
PROVIDERS: ADMIT Hospitalist; ATTEND Hospitalist
DX: N30.80 Other cystitis without hematuria (principal); E43 Unspecified severe protein-calorie malnutrition; I50.22 Chronic systolic (congestive) heart failure; Z68.1 Body mass index [BMI] 19.9 or less, adult; B96.20 Unspecified Escherichia coli [E. coli] as the cause of diseases classified elsewhere; E78.5 Hyperlipidemia, unspecified; F17.210 Nicotine dependence, cigarettes, uncomplicated; I11.0 Hypertensive heart disease with heart failure; I25.10 Atherosclerotic heart disease of native coronary artery without angina pectoris; I25.5 Ischemic cardiomyopathy; I48.91 Unspecified atrial fibrillation; I73.9 Peripheral vascular disease, unspecified; J44.9 Chronic obstructive pulmonary disease, unspecified; K21.9 Gastro-esophageal reflux disease without esophagitis; K40.90 Unilateral inguinal hernia, without obstruction or gangrene, not specified as recurrent; K57.90 Diverticulosis of intestine, part unspecified, without perforation or abscess without bleeding; M40.209 Unspecified kyphosis, site unspecified; K42.9 Umbilical hernia without obstruction or gangrene; K44.9 Diaphragmatic hernia without obstruction or gangrene; K64.8 Other hemorrhoids; R62.7 Adult failure to thrive; Z79.82 Long term (current) use of aspirin; Z79.899 Other long term (current) drug therapy; Z79.01 Long term (current) use of anticoagulants; Z95.1 Presence of aortocoronary bypass graft; Z95.0 Presence of cardiac pacemaker; Z88.1 Allergy status to other antibiotic agents; Z88.8 Allergy status to other drugs, medicaments and biological substances; Z86.718 Personal history of other venous thrombosis and embolism; Z86.14 Personal history of Methicillin resistant Staphylococcus aureus infection; I25.2 Old myocardial infarction; Z82.49 Family history of ischemic heart disease and other diseases of the circulatory system; Z80.42 Family history of malignant neoplasm of prostate; Z80.9 Family history of malignant neoplasm, unspecified
CPT/HCPCS: 36415; 71046; 80048; 80053; 81001; 84484; 85025; 85610; 85730; 87077; 87086; 87186; 93005; 94760; 96360; 96361; 96374; 99285